=== PATIENT | female | born 1945 | race Caucasian/White ===

== ENCOUNTER 2018-03-23 11:00 | Inpatient (IN) | payer MEDICARE ==
[2018-04-21] MEDS ORDERED: Acetaminophen 500 MG Tab PO ONE (08:15)
[2018-04-21] MEDS ORDERED: Dextrose 5%-Lactated Ringers 1,000 ML IV SCH (08:45)
[2018-04-21] MEDS ORDERED: Glycopyrrolate 0.2 MG/ML 5 ML MDV ONE (08:59)
[2018-04-21] MEDS ORDERED: Succinylcholine 200 MG/10 ML MDV ONE (08:59)
[2018-04-21] MEDS ORDERED: fentaNYL 250 MCG/5 ML SDV ONE (08:59)
[2018-04-21] MEDS ORDERED: Propofol 200 MG/20 ML SDV ONE (08:59)
[2018-04-21] MEDS ORDERED: Ondansetron 4 MG/2 ML SDV ONE (08:59)
[2018-04-21] MEDS ORDERED: Dexamethasone 4 MG/ML SDV ONE (08:59)
[2018-04-21] MEDS ORDERED: Rocuronium 50 MG/5 ML Vial ONE (08:59)
[2018-04-21] MEDS ORDERED: Neostigmine Methylsulfate 1 MG/ML 5 ML Syringe ONE (08:59)
[2018-04-21] MEDS ORDERED: ceFAZolin 2 GM in Sodium Chloride 0.9% 50 ML IV ONE (09:30)
[2018-04-21] MEDS ORDERED: Naloxone 0.4 MG/ML SDV IVPUSH PRN (09:46)
[2018-04-21] MEDS ORDERED: HYDROmorphone/Normal Saline 15 MG/30 ML PCA IV PRN (09:46)
[2018-04-21] MEDS ORDERED: Naloxone 0.4 MG/ML SDV IV PRN (09:50)
[2018-04-21] MEDS ORDERED: Ketamine 500 MG/5 ML MDV IV SCH (10:00)
[2018-04-21] MEDS ORDERED: Lactated Ringers 1,000 ML ONE (13:23)
[2018-04-21] MEDS ORDERED: Ondansetron 4 MG/2 ML SDV IVPUSH PRN (15:19)
[2018-04-21] MEDS: ceFAZolin 1 GM in Premix Bag 1 BAG IV SCH (17:47)
[2018-04-21] MEDS: Pantoprazole 40 MG Vial IV SCH (17:48)
[2018-04-21] MEDS: Metoprolol Tartrate 25 MG Tab PO SCH (20:55)
[2018-04-22] MEDS: ceFAZolin 1 GM in Premix Bag 1 BAG IV SCH ×2 (02:17→09:48)
[2018-04-22] MEDS ORDERED: Sodium Chloride 0.9% 10 ML Syringe IV PRN (08:11)
[2018-04-22] MEDS ORDERED: Acetaminophen 325 MG Tab PO PRN (08:15)
[2018-04-22] MEDS ORDERED: Lisinopril 20 MG Tab PO SCH (09:00)
[2018-04-22] MEDS: Hydrochlorothiazide 25 MG Tab PO SCH (09:49)
[2018-04-22] MEDS: Metoprolol Tartrate 25 MG Tab PO SCH ×2 (09:49→21:49)
[2018-04-22] MEDS: Magnesium Sulfate/Water 2 GM in Premix Bag 1 BAG IV SCH ×3 (11:36→21:49)
[2018-04-22] MEDS: Pantoprazole 40 MG Vial IV SCH (15:34)
[2018-04-23] MEDS: Magnesium Sulfate/Water 2 GM in Premix Bag 1 BAG IV SCH (04:24)
[2018-04-23] MEDS ORDERED: Magnesium Sulfate/Water 2 GM in Premix Bag 1 BAG IV ONE (08:00)
[2018-04-23] MEDS: Metoprolol Tartrate 25 MG Tab PO SCH (08:06)
[2018-04-23] MEDS: Hydrochlorothiazide 25 MG Tab PO SCH (08:06)
--- NOTE | 2018-04-23 15:01 | PN ---
DATE OF SERVICE: 04/22/2018 The patient has been afebrile with stable vital signs. No major problems. Overnight, she needed negligible amounts of pain medicine. Incision looks clean. Calcium this morning is down somewhat at 8.1, but is not symptomatic. Phosphate is 4.8. Magnesium is quite low at 1.2, we will be supplementing that. Otherwise, we will go up to a regular diet today, saline lock the IV, Tylenol as needed for pain, and begin supplementing the magnesium IV. She may be ready for discharge home tomorrow. John Paul Mendoza MD /[id number]
--- NOTE | 2018-04-23 15:02 | OR ---
DATE OF PROCEDURE: 04/21/2018 PREOPERATIVE DIAGNOSIS: Diffuse toxic goiter. POSTOPERATIVE DIAGNOSIS: Diffuse toxic goiter with substernal component of left thyroid lobe. OPERATIVE PROCEDURE: Thyroid exploration with right total thyroid lobectomy and left subtotal lobectomy including excision of substernal thyroid (20812). ANESTHESIA: General. MANAGEMENT PROFESSIONAL: Chen Mijares PA-C. INDICATION FOR PROCEDURE: This is a 73-year-old presenting with a picture of diffuse toxic goiter. After preoperative evaluation and discussion and various treatment options had been reviewed, the patient wished to proceed with a thyroidectomy. I will remove as much thyroid tissue as appears to be maximally safe which likely would include a total thyroid lobectomy and has at least a subtotal contralateral lobectomy. Potential risks of the procedure including bleeding, infection, injury to the parathyroid glands and/or recurrent laryngeal nerves with consequences of those injuries having been outlined were reviewed. The need for lifetime thyroid replacement was gone over and the remote possibility that an occult malignancy might be identified that might require additional treatment were all gone over along with the remote possibility of cardiopulmonary, septic, or hemorrhagic complications leading to , and the patient wishes to proceed. DETAILS OF PROCEDURE: The patient was taken to the operating room and placed in a supine position. After general endotracheal anesthetic was induced, a roll was placed underneath the shoulders, and the upper chest and neck areas were prepped and draped. Two fingerbreadths superior to the sternal notch, there was a well-defined skin crease, and a transversely-oriented incision was made in that crease, carried down through the skin and subcutaneous tissue and through the platysmal layers. Subplatysmal flaps were then raised superiorly and inferiorly, and the midline fascia of the strap muscles divided. Attention was initially taken to the left thyroid lobe. As the strap muscles were retracted off this, the patient was noted to have a significant substernal component of the left thyroid lobe, this contained some cystic-type thyroid tissue within it. This was mobilized upward bluntly and this allowed division of the inferior thyroid veins with the Sonicision device. The upper pole was then taken next with Sonicision, and this allowed medial mobilization of the left thyroid lobe, and the middle thyroid vein was then divided, and then the branches of the inferior thyroid artery were divided flush with the thyroid reflecting the group of tissues consisting of the more proximal inferior thyroid artery and its branches along with parathyroid tissue away from the surface of the thyroid capsule. The isthmus was then divided just to the right of the midline, and dissection continued downward, removing the attachments of the trachea in the area where the ligament of Bashir was present. That area appeared to be somewhat inflamed, and we left a small patch of thyroid tissue, perhaps half a size of the standard eraser head directly in that area, so as not to immediately dissect the inferior thyroid artery and underlying recurrent laryngeal nerve. This specimen was then delivered from the field. Attention was then taken to the right side. This side had little in the way of inflammation and a similar dissection was undertaken. Apart from that, there was no substernal component on this side, and on this side, a total lobectomy was accomplished as there was minimal if any inflammation in the area of ligament of Bashir. Parathyroid glands on this side were also confirmed and appeared to have good blood supply at the conclusion of the procedure. The area was irrigated with saline solution. No bleeding or other problems were noted at this point. The strap muscles were then approximated in midline with 3-0 Vicryl stitch, the platysmal layer with 4-0 Vicryl stitch, and the skin with 5-0 Vicryl subcuticular stitch. Dressing was applied. The patient was taken to the recovery room in satisfactory condition. Physician benefits assistant, Chen Mijares, played an essential role in assisting in this case, helping to position the patient, retract structures as needed, as well as suturing and cutting sutures when indicated. Her presence improved patient safety and decreased the operative time. John Paul Mendoza MD /[id number]
--- NOTE | 2018-04-23 15:46 | DISCH ---
FINAL DIAGNOSES: 1. Hyperthyroidism associated with diffuse toxic goiter. 2. Atypical chest pain with cardiac clearance. 3. Hypertension. 4. History of hyperlipidemia. 5. Remote history of myocardial infarction. 6. Environmental allergies. OPERATIVE PROCEDURE: This was done on 04/21 with thyroid exploration with total right thyroid lobectomy and subtotal left thyroid lobectomy with excision of substernal goiter. SUMMARY: This is a 73-year-old presenting with hyperthyroidism. Radiologic workup did not show any focal abnormalities, so the patient underwent the above-stated procedures. Postoperatively, her voice was good. Her calcium has been running around 7.9 to 8.1 and I think we can let discharge her home at this point. She will be instructed to take Tums 2 tablets p.o. b.i.d. Her magnesium also was quite low at 1.3 and she received several doses of IV magnesium and we will give her magnesium oxide 400 mg p.o. daily x90 days, #90. We will hold the Synthroid for the next few days and then begin empirically 88 mcg of Synthroid daily and recheck her TSH level in around 3 months. Otherwise, her blood pressure had been on the lower side, so we will hold the lisinopril at this point. Continue the hydrochlorothiazide and metoprolol and recheck her blood pressure at her next appointment, which will be this coming 04/26/2018. She should have a BMP, magnesium, and phosphate levels drawn at that time. Otherwise, she will be on regular diet and Tylenol as needed for pain.
== END 2018-04-23 10:30 | disposition home or self-care (01) | DRG 627 ==
LOC: JP.SDS 04-21 07:46 → JP.SDSSCHI 04-21 07:46 → EDSTATUS 04-21 10:45 → JP.MS 04-21 13:40
PROVIDERS: ADMIT Surgery; ATTEND Surgery
PROC: 0GTH0ZZ Resection of Right Thyroid Gland Lobe, Open Approach (ICD-10-PCS; principal; 2018-04-21)
PROC: 0GBG0ZX Excision of Left Thyroid Gland Lobe, Open Approach, Diagnostic (ICD-10-PCS; 2018-04-21)
PROC: 0GBJ0ZX Excision of Thyroid Gland Isthmus, Open Approach, Diagnostic (ICD-10-PCS; 2018-04-21)
DX: E05.00 Thyrotoxicosis with diffuse goiter without thyrotoxic crisis or storm (principal); R60.0 Localized edema; E83.42 Hypomagnesemia; I10 Essential (primary) hypertension; I25.2 Old myocardial infarction; R07.89 Other chest pain; E78.5 Hyperlipidemia, unspecified
CPT/HCPCS: 36415; 80048; 83735; 84100; 94762; A9270-GY; C9113; J0330; J0690; J1100; J1170; J2405; J2704; J2710; J3010; J3475; J3490; J7042; J7050; J7120

== ENCOUNTER 2021-04-05 06:28 | Inpatient (IN) | payer MEDICARE ==
[2021-04-05] MEDS ORDERED: Albuterol/Ipratropium 3.0-0.5 MG/3 ML Neb Soln NEB ONE (07:19)
--- NOTE | 2021-04-05 07:22 | EDM.PDOC ---
ED HPI GENERAL MEDICAL PROBLEM - General Chief Complaint: Respiratory Problem Stated Complaint: SOB Time Seen by Provider: 04/05/21 07:14 Source of Information: Reports: Patient, Family, RN Notes Reviewed History Limitations: Reports: No Limitations - History of Present Illness INITIAL COMMENTS - FREE TEXT/NARRATIVE: 76-year-old female presents emergency department with a complaint of shortness of breath, she states she started getting sick about 3 days prior has progressively gotten worse had difficulty breathing this morning presented to the emergency department for further evaluation. She states he may had a fever at home but it might have been broke she has been vaccinated for Covid x2 - Related Data Allergies Allergy/AdvReac Type Severity Reaction Status Date / Time No Known Allergies Allergy Verified 04/05/21 06:48 Home Meds: Home Meds Cholecalciferol (Vitamin D3) [Vitamin D3] 5,000 unit PO DAILY 03/23/18 [History] Lisinopril 40 mg PO DAILY 03/23/18 [History] Metoprolol Tartrate 50 mg PO DAILY 03/23/18 [History] atorvaSTATin [Lipitor] 10 mg PO BEDTIME 03/23/18 [History] hydroCHLOROthiazide [Hydrochlorothiazide] 50 mg PO DAILY 03/23/18 [History] Levothyroxine [Synthroid] 88 mcg PO ACBREAKFAST #90 tab 04/23/18 [Rx] Magnesium Oxide [Magnesium] 400 mg PO DAILY #90 tablet 04/23/18 [Rx] Past Medical History HEENT History: Reports: Impaired Vision Other HEENT History: wears glasses Cardiovascular History: Reports: Angina, CAD, High Cholesterol, Hypertension, PR Other Cardiovascular History: [facility] History: Reports: Endocrine/Metabolic History: Reports: Hyperparathyroidism - Infectious Disease History Infectious Disease History: Reports: Chicken Pox, Shingles Social & Family History - Family History Neurological: Reports: TIA - Caffeine Use Caffeine Use: Reports: Coffee - Recreational Drug Use Recreational Drug Use: No ED ROS GENERAL - Review of Systems Review Of Systems: See Below Constitutional: Reports: No Symptoms HEENT: Reports: No Symptoms Respiratory: Reports: Shortness of Breath. Denies: Cough, Sputum Cardiovascular: Reports: Dyspnea on Exertion. Denies: Chest Pain GI/Abdominal: Reports: No Symptoms : Reports: No Symptoms ED EXAM, GENERAL - Physical Exam Exam: See Below Exam Limited By: No Limitations General Appearance: Alert, WD/WN, No Apparent Distress Respiratory/Chest: No Respiratory Distress, Lungs Clear, Normal Breath Sounds, No Accessory Muscle Use, Chest Non-Tender Cardiovascular: Tachycardia GI/Abdominal: Soft, Non-Tender Extremities: No Pedal Edema #1 Interpretation EKG Date: 04/05/21 Time: 08:25 Rhythm: Other (tachycardia) [place]: Normal P-Wave: Present QRS: Normal ST-T: Normal QT: Normal Comparison: NA - No Prior EKG Course - Vital Signs Last Recorded V/S: Last Vital Signs Temp 98.1 F 04/05/21 11:14 Pulse 88 04/05/21 11:14 Resp 18 04/05/21 11:14 BP 121/63 04/05/21 11:14 Pulse Ox 98 04/05/21 11:14 - Orders/Labs/Meds Orders: Active Orders 24 hr Category Date Time Status Cardiac Monitoring [RC] .As Directed Care 04/05/21 06:55 Active EKG Documentation Completion [RC] ASDIRECTED Care 04/05/21 07:20 Active RT Aerosol Therapy [RC] ASDIRECTED Care 04/05/21 07:20 Active Vital Signs [RC] Q1H Care 04/05/21 07:18 Active Chest 1V Frontal [CR] Urgent Exams 04/05/21 07:19 Taken CULTURE BLOOD [BC] Urgent Lab 04/05/21 07:50 Received CULTURE BLOOD [BC] Urgent Lab 04/05/21 08:05 Received UA W/MICROSCOPIC [URIN] Urgent Lab 04/05/21 11:48 Results Norepinephrine [Levophed] 4 mg Med 04/05/21 10:00 Active Dextrose 5% in Water 246 ml IV TITRATE Piperacillin/Tazobactam [Zosyn] 4.5 gm Med 04/05/21 07:30 Active Sodium Chloride 0.9% [Normal Saline] 100 ml IV Q6H Blood Culture x2 Reflex Set [OM.PC] Urgent Oth 04/05/21 07:18 Ordered EKG 12 Lead [EK] Stat Ther 04/05/21 07:19 Ordered Medication Orders Piperacillin Sod/Tazobactam (Sod 4.5 gm/ Sodium Chloride) 100 mls @ 200 mls/hr IV Q6H CHASITY Last Admin: 04/05/21 08:10 Dose: 200 mls/hr Documented by: LADI Norepinephrine Bitartrate 4 mg (/ Dextrose/Water) 250 mls @ 7.5 mls/hr IV TITRATE CHASITY; Protocol Last Admin: 04/05/21 10:00 Dose: 2 mcg/min, 7.5 mls/hr Documented by: LADI Labs: Laboratory Tests 04/05/21 04/05/21 04/05/21 Range/Units 07:33 07:50 07:50 WBC 7.5 (4.5-11.0) K/uL RBC 4.78 (3.30-5.50) M/uL Hgb 14.3 (12.0-15.0) g/dL Hct 42.1 (36.0-48.0) % MCV 88 (80-98) fL MCH 30 (27-31) pg MCHC 34 (32-36) % Plt Count 123 L (150-400) K/uL Add Manual Diff Yes Neutrophils % (Manual) 81 H (36-66) % Band Neutrophils % 10 (5-11) % Lymphocytes % (Manual) 3 L (24-44) % Monocytes % (Manual) 6 (2-6) % D-Dimer, Quantitative (0.0-500.0) ng/mL Sodium 135 L (140-148) mmol/L Potassium 3.1 L (3.6-5.2) mmol/L Chloride 97 L (100-108) mmol/L Carbon Dioxide 27 (21-32) mmol/L Anion Gap 14.1 H (5.0-14.0) mmol/L BUN 39 H (7-18) mg/dL Creatinine 1.4 H (0.6-1.0) mg/dL Est Cr Clr Drug Dosing 26.19 mL/min Estimated GFR (MDRD) 36 L (>60) Glucose 117 H (74-106) mg/dL Lactic Acid (0.4-2.0) mmol/L Calcium 8.7 (8.5-10.1) mg/dL Total Bilirubin 0.5 (0.2-1.0) mg/dL AST 85 H (15-37) U/L ALT 48 (12-78) U/L Alkaline Phosphatase 82 (46-116) U/L Troponin I (0.000-0.056) ng/mL C-Reactive Protein 7.62 H (0.0-0.3) mg/dL Total Protein 6.3 L (6.4-8.2) g/dL Albumin 3.1 L (3.4-5.0) g/dL Globulin 3.2 (2.3-3.5) g/dL Albumin/Globulin Ratio 1.0 L (1.2-2.2) Procalcitonin ng/mL Urine Color (YELLOW) Urine Appearance (CLEAR) Urine pH (5.0-8.0) Ur Specific [place] (1.008-1.030) Urine Protein (NEGATIVE) mg/dL Urine Glucose (UA) (NEGATIVE) mg/dL Urine Ketones (NEGATIVE) mg/dL Urine Occult Blood (NEGATIVE) Urine Nitrite (NEGATIVE) Urine Bilirubin (NEGATIVE) Urine Urobilinogen (0.2-1.0) EU/dL Ur Leukocyte Esterase (NEGATIVE) Influenza Type A RNA Negative (NEGATIVE) RSV RNA (INAAT) Negative (NEGATIVE) Influenza Type B RNA Negative (NEGATIVE) SARS-CoV-2 RNA (EBONY) Negative (NEGATIVE) 04/05/21 04/05/21 04/05/21 Range/Units 07:50 07:50 07:50 WBC (4.5-11.0) K/uL RBC (3.30-5.50) M/uL Hgb (12.0-15.0) g/dL Hct (36.0-48.0) % MCV (80-98) fL MCH (27-31) pg MCHC (32-36) % Plt Count (150-400) K/uL Add Manual Diff Neutrophils % (Manual) (36-66) % Band Neutrophils % (5-11) % Lymphocytes % (Manual) (24-44) % Monocytes % (Manual) (2-6) % D-Dimer, Quantitative (0.0-500.0) ng/mL Sodium (140-148) mmol/L Potassium (3.6-5.2) mmol/L Chloride (100-108) mmol/L Carbon Dioxide (21-32) mmol/L Anion Gap (5.0-14.0) mmol/L BUN (7-18) mg/dL Creatinine (0.6-1.0) mg/dL Est Cr Clr Drug Dosing mL/min Estimated GFR (MDRD) (>60) Glucose (74-106) mg/dL Lactic Acid 1.3 (0.4-2.0) mmol/L Calcium (8.5-10.1) mg/dL Total Bilirubin (0.2-1.0) mg/dL AST (15-37) U/L ALT (12-78) U/L Alkaline Phosphatase (46-116) U/L Troponin I < 0.017 (0.000-0.056) ng/mL C-Reactive Protein (0.0-0.3) mg/dL Total Protein (6.4-8.2) g/dL Albumin (3.4-5.0) g/dL Globulin (2.3-3.5) g/dL Albumin/Globulin Ratio (1.2-2.2) Procalcitonin 2.67 H* ng/mL Urine Color (YELLOW) Urine Appearance (CLEAR) Urine pH (5.0-8.0) Ur Specific [place] (1.008-1.030) Urine Protein (NEGATIVE) mg/dL Urine Glucose (UA) (NEGATIVE) mg/dL Urine Ketones (NEGATIVE) mg/dL Urine Occult Blood (NEGATIVE) Urine Nitrite (NEGATIVE) Urine Bilirubin (NEGATIVE) Urine Urobilinogen (0.2-1.0) EU/dL Ur Leukocyte Esterase (NEGATIVE) Influenza Type A RNA (NEGATIVE) RSV RNA (INAAT) (NEGATIVE) Influenza Type B RNA (NEGATIVE) SARS-CoV-2 RNA (EBONY) (NEGATIVE) 04/05/21 04/05/21 Range/Units 09:42 11:48 WBC (4.5-11.0) K/uL RBC (3.30-5.50) M/uL Hgb (12.0-15.0) g/dL Hct (36.0-48.0) % MCV (80-98) fL MCH (27-31) pg MCHC (32-36) % Plt Count (150-400) K/uL Add Manual Diff Neutrophils % (Manual) (36-66) % Band Neutrophils % (5-11) % Lymphocytes % (Manual) (24-44) % Monocytes % (Manual) (2-6) % D-Dimer, Quantitative 8028.04 H (0.0-500.0) ng/mL Sodium (140-148) mmol/L Potassium (3.6-5.2) mmol/L Chloride (100-108) mmol/L Carbon Dioxide (21-32) mmol/L Anion Gap (5.0-14.0) mmol/L BUN (7-18) mg/dL Creatinine (0.6-1.0) mg/dL Est Cr Clr Drug Dosing mL/min Estimated GFR (MDRD) (>60) Glucose (74-106) mg/dL Lactic Acid (0.4-2.0) mmol/L Calcium (8.5-10.1) mg/dL Total Bilirubin (0.2-1.0) mg/dL AST (15-37) U/L ALT (12-78) U/L Alkaline Phosphatase (46-116) U/L Troponin I (0.000-0.056) ng/mL C-Reactive Protein (0.0-0.3) mg/dL Total Protein (6.4-8.2) g/dL Albumin (3.4-5.0) g/dL Globulin (2.3-3.5) g/dL Albumin/Globulin Ratio (1.2-2.2) Procalcitonin ng/mL Urine Color Yellow (YELLOW) Urine Appearance Clear (CLEAR) Urine pH 6.0 (5.0-8.0) Ur Specific [place] 1.010 (1.008-1.030) Urine Protein 30 H (NEGATIVE) mg/dL Urine Glucose (UA) Negative (NEGATIVE) mg/dL Urine Ketones Negative (NEGATIVE) mg/dL Urine Occult Blood Small H (NEGATIVE) Urine Nitrite Negative (NEGATIVE) Urine Bilirubin Negative (NEGATIVE) Urine Urobilinogen 0.2 (0.2-1.0) EU/dL Ur Leukocyte Esterase Negative (NEGATIVE) Influenza Type A RNA (NEGATIVE) RSV RNA (INAAT) (NEGATIVE) Influenza Type B RNA (NEGATIVE) SARS-CoV-2 RNA (EBONY) (NEGATIVE) Meds: Medications Generic Name Dose Route Start Last Admin Trade Name Freq PRN Reason Stop Dose Admin Piperacillin Sod/Tazobactam 100 mls @ 200 mls/hr 04/05/21 07:30 04/05/21 08:10 Sod 4.5 gm/ Sodium Chloride IV 200 mls/hr Q6H CHASITY Administration Norepinephrine Bitartrate 4 mg 250 mls @ 7.5 mls/hr 04/05/21 10:00 04/05/21 10:00 / Dextrose/Water IV 2 mcg/min TITRATE CHASITY 7.5 mls/hr Administration Protocol 2 MCG/MIN Discontinued Medications Generic Name Dose Route Start Last Admin Trade Name Jaguar VELASQUEZN Reason Stop Dose Admin Acetaminophen 650 mg 04/05/21 07:29 04/05/21 08:10 Acetaminophen 325 Mg Tab PO 04/05/21 07:30 650 mg NOW ONE Administration Albuterol/Ipratropium 3 ml 04/05/21 07:19 04/05/21 08:25 Albuterol/Ipratropium 3.0-0.5 Mg/3 Ml Neb Soln NEB 04/05/21 07:20 3 ml ONETIME ONE Administration Lactated Ringer's 1,000 mls @ 999 mls/hr 04/05/21 07:30 04/05/21 08:10 Ringers, Lactated IV 999 mls/hr ASDIRECTED CHASITY Administration Lactated Ringer's 1,000 mls @ 999 mls/hr 04/05/21 09:25 04/05/21 09:30 Ringers, Lactated IV 04/05/21 10:25 999 mls/hr BOLUS ONE Administration Sodium Chloride 100 mls @ 4 mls/sec 04/05/21 10:33 04/05/21 11:24 Normal Saline IV 04/05/21 10:34 4 mls/sec ASDIRECTED STA Administration Iopamidol 100 ml 04/05/21 10:33 04/05/21 11:24 Iopamidol 755 Mg/Ml 100 Ml Bottle IV 04/05/21 10:34 100 ml . DIRECTED STA Administration Departure - Departure Time of Disposition: 11:57 Disposition: Admitted As Inpatient 64 Condition: Fair Clinical Impression: Sepsis associated hypotension - Discharge Information Referrals: Sean Lugo Sr, MD [Primary Care Provider] - Forms: ED Department Discharge Critical Care Note - Critical Care Note Total Time (mins): 30 Sepsis Event Note (ED) - Evaluation Sepsis Screening Result: Possible Sepsis Risk - Focused Exam Vital Signs: Vital Signs Temp Pulse Resp BP Pulse Ox 04/05/21 11:14 98.1 F 88 18 121/63 98 04/05/21 11:10 88 26 H 121/63 98 04/05/21 10:43 96 93/51 L 04/05/21 10:00 99.8 F 92 26 H 82/43 L 94 L 04/05/21 09:59 97 29 H 82/43 L 93 L 04/05/21 09:54 98 78/41 L 95 04/05/21 09:47 98 30 H 71/35 L 95 04/05/21 09:23 102 H 25 H 77/39 L 94 L 04/05/21 09:11 82/36 L 04/05/21 09:03 100.4 F 110 H 22 H 74/36 L 94 L 04/05/21 07:30 102.8 F H 04/05/21 06:45 97.1 F 132 H 30 H 107/62 91 L - My Orders Last 24 Hours: My Active Orders 04/05/21 07:18 Vital Signs [RC] Q1H Blood Culture x2 Reflex Set [OM.PC] Urgent 04/05/21 07:19 Chest 1V Frontal [CR] Urgent EKG 12 Lead [EK] Stat 04/05/21 07:20 EKG Documentation Completion [RC] ASDIRECTED RT Aerosol Therapy [RC] ASDIRECTED 04/05/21 07:30 Piperacillin/Tazobactam [Zosyn] 4.5 gm Sodium Chloride 0.9% [Normal Saline] 100 ml IV Q6H 04/05/21 07:50 CULTURE BLOOD [BC] Urgent 04/05/21 08:05 CULTURE BLOOD [BC] Urgent 04/05/21 10:00 Norepinephrine [Levophed] 4 mg Dextrose 5% in Water 246 ml IV TITRATE 04/05/21 11:48 UA W/MICROSCOPIC [URIN] Urgent - Assessment/Plan Last 24 Hours: My Active Orders 04/05/21 07:18 Vital Signs [RC] Q1H Blood Culture x2 Reflex Set [OM.PC] Urgent 04/05/21 07:19 Chest 1V Frontal [CR] Urgent EKG 12 Lead [EK] Stat 04/05/21 07:20 EKG Documentation Completion [RC] ASDIRECTED RT Aerosol Therapy [RC] ASDIRECTED 04/05/21 07:30 Piperacillin/Tazobactam [Zosyn] 4.5 gm Sodium Chloride 0.9% [Normal Saline] 100 ml IV Q6H 04/05/21 07:50 CULTURE BLOOD [BC] Urgent 04/05/21 08:05 CULTURE BLOOD [BC] Urgent 04/05/21 10:00 Norepinephrine [Levophed] 4 mg Dextrose 5% in Water 246 ml IV TITRATE 04/05/21 11:48 UA W/MICROSCOPIC [URIN] Urgent Plan: Assessment Acuity = acute Site and laterality = sepsis with hypotension Etiology = unknown Manifestations = none Location of injury = Home Lab values = CBC unremarkable D-dimer elevated 8028 unclear significance potassium low at 3.1 consistent hypokalemia creatinine elevated 1.4 consistent with acute renal failure stage G3 B lactic acid normal 1.3 AST elevated 85 consistent with elevated liver enzymes troponin was negative CRP elevated 7.60 procalcitonin markedly elevated 2.67 urinalysis unremarkable chest x-ray shows no acute process official read radiologist pending CT scan of the chest reveals no pulmonary embolism, Covid was negative influenza negative Plan Call discussed case Dr. Lugo primary care at 10:00 kindly agreed to come and evaluate patient for admission, Levophed has been initiated in the emergency department as well Zosyn. Cultures are pending This note was dictated using [employer] voice recognition software please call with any questions on syntax or grammar.
[2021-04-05] MEDS ORDERED: Acetaminophen 325 MG Tab PO ONE (07:29)
[2021-04-05] MEDS ORDERED: Lactated Ringers 1,000 ML IV SCH (07:30)
[2021-04-05] MEDS ORDERED: Piperacillin/Tazobactam 4.5 GM in Sodium Chloride 0.9% 100 ML IV SCH ×2 (07:30→12:30)
[2021-04-05 08:18] LABS: CORONAVIRUS COVID-19 NAA NEGATIVE (NEGATIVE)
[2021-04-05] MEDS ORDERED: Lactated Ringers 1,000 ML IV ONE (09:25)
[2021-04-05] MEDS: Norepinephrine 4 MG in Dextrose 5% in Water 246 ML IV SCH ×2 (10:00)
[2021-04-05] MEDS ORDERED: Sodium Chloride 0.9% 100 ML IV STA (10:33)
[2021-04-05] MEDS ORDERED: Iopamidol 755 Mg/ML 100 ML Bottle IV STA (10:33)
--- NOTE | 2021-04-05 11:50 | CRLCT ---
For Patients: As a result of the Century Cures Act, medical imaging exams and procedure reports are released immediately into your electronic medical record. You may view this report before your referring provider. If you have questions, please contact your health care provider. INDICATION: Hypoxic. TECHNIQUE: CT chest pulmonary angiogram acquired with IV contrast. COMPARISON: None FINDINGS: The aorta is normal in caliber. There is atherosclerotic calcification. Heart is not enlarged. There are coronary artery calcifications. The main pulmonary artery is normal in caliber. No pulmonary embolus. Enlarged right hilar lymph node measures 1.8 x 1.6 cm (image 59). Additional prominent right hilar lymph nodes. There prominent left hilar lymph nodes. An azygos esophageal recess lymph node measures 1.7 x 1.4 cm (image 60). There are additional prominent mediastinal lymph nodes. A calcified mediastinal lymph nodes noted as well. No axillary lymphadenopathy. No effusions. No pneumothorax. Emphysema noted. Bilateral posterior lower lobe opacities most consistent with atelectasis. No suspicious lung lesion. Small hiatal hernia. No suspicious bone lesion. No acute osseous abnormality. IMPRESSION: 1. No pulmonary embolus. 2. Bilateral posterior lower lobe opacities favor atelectasis. 3. Emphysema. 4. Mediastinal and right hilar lymphadenopathy. Etiology is uncertain. A neoplastic process is not excluded. Recommend further evaluation versus follow-up. Dictated by Julio Garzon MD @ 04/05/2021 11:48:05 AM Please note that all CT scans at this facility use dose modulation, iterative reconstruction, and/or weight-based dosing when appropriate to reduce radiation dose to as low as reasonably achievable. Dictated by: Julio Garzon MD @ 04/05/2021 11:48:14 (Electronically Signed)
--- NOTE | 2021-04-05 11:56 | PCM.HP.2 ---
H&P History of Present Illness - General Date of Service: 04/05/21 Source of Information: Patient - History of Present Illness Initial Comments - Free Text/Narative: Feeling weak for one week then 4 days started to cough and had shortness of breath. Started to have fever and chills 2 days ago and shortness of breath became apparent yesterday. Onset of Symptoms: Reports: Gradual Associated Symptoms: Reports: Cough, Fever/Chills, Loss of Appetite, Shortness of Breath, Weakness - Related Data Allergies/Adverse Reactions: Allergies Allergy/AdvReac Type Severity Reaction Status Date / Time No Known Allergies Allergy Verified 04/05/21 06:48 Home Medications: Home Meds Cholecalciferol (Vitamin D3) [Vitamin D3] 5,000 unit PO DAILY 03/23/18 [History] Lisinopril 40 mg PO DAILY 03/23/18 [History] Metoprolol Tartrate 50 mg PO DAILY 03/23/18 [History] atorvaSTATin [Lipitor] 10 mg PO BEDTIME 03/23/18 [History] hydroCHLOROthiazide [Hydrochlorothiazide] 50 mg PO DAILY 03/23/18 [History] Levothyroxine [Synthroid] 88 mcg PO ACBREAKFAST #90 tab 04/23/18 [Rx] Magnesium Oxide [Magnesium] 400 mg PO DAILY #90 tablet 04/23/18 [Rx] Past Medical History HEENT History: Reports: Impaired Vision Other HEENT History: wears glasses Cardiovascular History: Reports: Angina, CAD, High Cholesterol, Hypertension, [place] Other Cardiovascular History: edma [employer] History: Reports: Endocrine/Metabolic History: Reports: Hyperparathyroidism - Infectious Disease History Infectious Disease History: Reports: Chicken Pox, Shingles Social & Family History - Family History Neurological: Reports: TIA - Caffeine Use Caffeine Use: Reports: Coffee - Recreational Drug Use Recreational Drug Use: No H&P Review of Systems - Review of Systems: Review Of Systems: See Below General: Reports: Fever, Chills, Malaise, Weakness, Decreased Appetite HEENT: Reports: No Symptoms Pulmonary: Reports: Shortness of Breath, Wheezing, Cough, Sputum Cardiovascular: Reports: Dyspnea on Exertion Gastrointestinal: Reports: No Symptoms Genitourinary: Reports: No Symptoms Musculoskeletal: Reports: No Symptoms Skin: Reports: No Symptoms Psychiatric: Reports: No Symptoms Neurological: Reports: No Symptoms Hematologic/Lymphatic: Reports: No Symptoms Immunologic: Reports: No Symptoms Exam - Exam Exam: See Below - Vital Signs Vital Signs: Last Vital Signs Temp 98.1 F 04/05/21 11:14 Pulse 88 04/05/21 11:14 Resp 18 04/05/21 11:14 BP 121/63 04/05/21 11:14 Pulse Ox 98 04/05/21 11:14 Weight: 160 lb - Exam General: Alert, Oriented, 4 HEENT: PERRLA, Hearing Intact, Mucosa Moist & [place], Nares Patent, Normal Nasal Septum, Posterior Pharynx Clear, Conjunctiva Clear, EOMI, EACs Clear, TMs Clear Neck: Supple, Trachea Midline, 2 Lungs: Clear to Auscultation, Normal Respiratory Effort Cardiovascular: Regular Rate, Regular Rhythm GI/Abdominal Exam: Normal Bowel Sounds, Soft, Non-Tender, No Organomegaly, No Distention, No Abnormal Bruit, No Mass, Pelvis Stable Back Exam: Normal Inspection, Full Range of Motion, NT Extremities: Normal Inspection, Normal Range of Motion, Non-Tender, No Pedal Edema, Normal Capillary Refill Peripheral Pulses: 1+: Radial (L), Radial (R) Skin: Warm, Dry, Intact DTR: 1+: Bicep (L), Bicep (R) Psychiatric: Alert, Normal Affect, Normal Mood - Patient Data Lab Results Last 24 hrs: Laboratory Results - last 24 hr 04/05/21 04/05/21 04/05/21 Range/Units 07:33 07:50 07:50 WBC 7.5 (4.5-11.0) K/uL RBC 4.78 (3.30-5.50) M/uL Hgb 14.3 (12.0-15.0) g/dL Hct 42.1 (36.0-48.0) % MCV 88 (80-98) fL MCH 30 (27-31) pg MCHC 34 (32-36) % Plt Count 123 L (150-400) K/uL Add Manual Diff Yes Neutrophils % (Manual) 81 H (36-66) % Band Neutrophils % 10 (5-11) % Lymphocytes % (Manual) 3 L (24-44) % Monocytes % (Manual) 6 (2-6) % D-Dimer, Quantitative (0.0-500.0) ng/mL Sodium 135 L (140-148) mmol/L Potassium 3.1 L (3.6-5.2) mmol/L Chloride 97 L (100-108) mmol/L Carbon Dioxide 27 (21-32) mmol/L Anion Gap 14.1 H (5.0-14.0) mmol/L BUN 39 H (7-18) mg/dL Creatinine 1.4 H (0.6-1.0) mg/dL Est Cr Clr Drug Dosing 26.19 mL/min Estimated GFR (MDRD) 36 L (>60) Glucose 117 H (74-106) mg/dL Lactic Acid (0.4-2.0) mmol/L Calcium 8.7 (8.5-10.1) mg/dL Total Bilirubin 0.5 (0.2-1.0) mg/dL AST 85 H (15-37) U/L ALT 48 (12-78) U/L Alkaline Phosphatase 82 (46-116) U/L Troponin I (0.000-0.056) ng/mL C-Reactive Protein 7.62 H (0.0-0.3) mg/dL Total Protein 6.3 L (6.4-8.2) g/dL Albumin 3.1 L (3.4-5.0) g/dL Globulin 3.2 (2.3-3.5) g/dL Albumin/Globulin Ratio 1.0 L (1.2-2.2) Procalcitonin ng/mL Influenza Type A RNA Negative (NEGATIVE) RSV RNA (INAAT) Negative (NEGATIVE) Influenza Type B RNA Negative (NEGATIVE) SARS-CoV-2 RNA (EBONY) Negative (NEGATIVE) 04/05/21 04/05/21 04/05/21 Range/Units 07:50 07:50 07:50 WBC (4.5-11.0) K/uL RBC (3.30-5.50) M/uL Hgb (12.0-15.0) g/dL Hct (36.0-48.0) % MCV (80-98) fL MCH (27-31) pg MCHC (32-36) % Plt Count (150-400) K/uL Add Manual Diff Neutrophils % (Manual) (36-66) % Band Neutrophils % (5-11) % Lymphocytes % (Manual) (24-44) % Monocytes % (Manual) (2-6) % D-Dimer, Quantitative (0.0-500.0) ng/mL Sodium (140-148) mmol/L Potassium (3.6-5.2) mmol/L Chloride (100-108) mmol/L Carbon Dioxide (21-32) mmol/L Anion Gap (5.0-14.0) mmol/L BUN (7-18) mg/dL Creatinine (0.6-1.0) mg/dL Est Cr Clr Drug Dosing mL/min Estimated GFR (MDRD) (>60) Glucose (74-106) mg/dL Lactic Acid 1.3 (0.4-2.0) mmol/L Calcium (8.5-10.1) mg/dL Total Bilirubin (0.2-1.0) mg/dL AST (15-37) U/L ALT (12-78) U/L Alkaline Phosphatase (46-116) U/L Troponin I < 0.017 (0.000-0.056) ng/mL C-Reactive Protein (0.0-0.3) mg/dL Total Protein (6.4-8.2) g/dL Albumin (3.4-5.0) g/dL Globulin (2.3-3.5) g/dL Albumin/Globulin Ratio (1.2-2.2) Procalcitonin 2.67 H* ng/mL Influenza Type A RNA (NEGATIVE) RSV RNA (INAAT) (NEGATIVE) Influenza Type B RNA (NEGATIVE) SARS-CoV-2 RNA (EBONY) (NEGATIVE) 04/05/21 Range/Units 09:42 WBC (4.5-11.0) K/uL RBC (3.30-5.50) M/uL Hgb (12.0-15.0) g/dL Hct (36.0-48.0) % MCV (80-98) fL MCH (27-31) pg MCHC (32-36) % Plt Count (150-400) K/uL Add Manual Diff Neutrophils % (Manual) (36-66) % Band Neutrophils % (5-11) % Lymphocytes % (Manual) (24-44) % Monocytes % (Manual) (2-6) % D-Dimer, Quantitative 8028.04 H (0.0-500.0) ng/mL Sodium (140-148) mmol/L Potassium (3.6-5.2) mmol/L Chloride (100-108) mmol/L Carbon Dioxide (21-32) mmol/L Anion Gap (5.0-14.0) mmol/L BUN (7-18) mg/dL Creatinine (0.6-1.0) mg/dL Est Cr Clr Drug Dosing mL/min Estimated GFR (MDRD) (>60) Glucose (74-106) mg/dL Lactic Acid (0.4-2.0) mmol/L Calcium (8.5-10.1) mg/dL Total Bilirubin (0.2-1.0) mg/dL AST (15-37) U/L ALT (12-78) U/L Alkaline Phosphatase (46-116) U/L Troponin I (0.000-0.056) ng/mL C-Reactive Protein (0.0-0.3) mg/dL Total Protein (6.4-8.2) g/dL Albumin (3.4-5.0) g/dL Globulin (2.3-3.5) g/dL Albumin/Globulin Ratio (1.2-2.2) Procalcitonin ng/mL Influenza Type A RNA (NEGATIVE) RSV RNA (INAAT) (NEGATIVE) Influenza Type B RNA (NEGATIVE) SARS-CoV-2 RNA (EBONY) (NEGATIVE) Result Diagrams: 04/06/21 04:45 04/06/21 04:45 Sepsis Event Note - Evaluation Sepsis Screening Result: Possible Sepsis Risk - Focused Exam Vital Signs: Vital Signs Temp Pulse Resp BP Pulse Ox 04/05/21 11:14 98.1 F 88 18 121/63 98 04/05/21 11:10 88 26 H 121/63 98 04/05/21 10:43 96 93/51 L 04/05/21 10:00 99.8 F 92 26 H 82/43 L 94 L 04/05/21 09:59 97 29 H 82/43 L 93 L 04/05/21 09:54 98 78/41 L 95 04/05/21 09:47 98 30 H 71/35 L 95 04/05/21 09:23 102 H 25 H 77/39 L 94 L 04/05/21 09:11 82/36 L 04/05/21 09:03 100.4 F 110 H 22 H 74/36 L 94 L 04/05/21 07:30 102.8 F H 04/05/21 06:45 97.1 F 132 H 30 H 107/62 91 L Problem List Initiated/Reviewed/Updated: Yes Orders Last 24hrs: Active Orders 24 hr Category Date Time Status Cardiac Monitoring [RC] .As Directed Care 04/05/21 06:55 Active EKG Documentation Completion [RC] ASDIRECTED Care 04/05/21 07:20 Active RT Aerosol Therapy [RC] ASDIRECTED Care 04/05/21 07:20 Active Vital Signs [RC] Q1H Care 04/05/21 07:18 Active Chest 1V Frontal [CR] Urgent Exams 04/05/21 07:19 Taken CULTURE BLOOD [BC] Urgent Lab 04/05/21 07:50 Received CULTURE BLOOD [BC] Urgent Lab 04/05/21 08:05 Received UA W/MICROSCOPIC [URIN] Urgent Lab 04/05/21 11:48 Ordered Norepinephrine [Levophed] 4 mg Med 04/05/21 10:00 Active Dextrose 5% in Water 246 ml IV TITRATE Piperacillin/Tazobactam [Zosyn] 4.5 gm Med 04/05/21 07:30 Active Sodium Chloride 0.9% [Normal Saline] 100 ml IV Q6H Blood Culture x2 Reflex Set [OM.PC] Urgent Oth 04/05/21 07:18 Ordered EKG 12 Lead [EK] Stat Ther 04/05/21 07:19 Ordered Medication Orders Piperacillin Sod/Tazobactam (Sod 4.5 gm/ Sodium Chloride) 100 mls @ 200 mls/hr IV Q6H [facility] Last Admin: 04/05/21 08:10 Dose: 200 mls/hr Documented by: LADI Norepinephrine Bitartrate 4 mg (/ Dextrose/Water) 250 mls @ 7.5 mls/hr IV TITRATE CHASITY; Protocol Last Admin: 04/05/21 10:00 Dose: 2 mcg/min, 7.5 mls/hr Documented by: LADI Assessment/Plan Comment:: Assessment/Plan: #1. Fever, chills, respiratory distress, lymph nodes right lung. D-dimmer elevated with neg CT Angiogram of chest for PE.except sepsis: Blood cultures and urine cultures pending. The lymph nodes are of concern. 2. Hypotension: Continue with Levophed to maintain blood pressure. #3. Mild hypokalemia: Will replace K+. #4. Hypotension: Will continue with Levophed and adjust according to the blood pressure #5. CRF: eGFR 23 Will replace fluids and monitor. #6. CPR elevation: 7.6 unknown source or cause Will admit to the ICU. - Mortality Measure Prognosis:: Good
[2021-04-05] MEDS ORDERED: Enoxaparin 40 MG/0.4 ML Syringe SUBCUT SCH (12:30)
[2021-04-05] MEDS ORDERED: Enoxaparin 30 MG/0.3 ML Syringe SUBCUT SCH (13:30)
[2021-04-05] MEDS: Piperacillin/Tazobactam/Dext 3.375 GM in Premix Bag 1 BAG IV SCH ×2 (14:11→19:10)
[2021-04-05] MEDS: hydrOXYzine HCl 25 MG Tab PO PRN (15:05)
[2021-04-05] MEDS: Sodium Chloride 0.9% 1,000 ML IV SCH ×2 (15:40→23:58)
[2021-04-05] MEDS: Potassium Chloride 20 MEQ Tab.ER PO SCH (17:39)
[2021-04-05] MEDS: Acetaminophen 500 MG Tab PO PRN (19:41)
[2021-04-05] MEDS: Albuterol/Ipratropium 3.0-0.5 MG/3 ML Neb Soln NEB PRN (19:41)
[2021-04-06] MEDS: Piperacillin/Tazobactam/Dext 3.375 GM in Premix Bag 1 BAG IV SCH ×4 (01:09→20:23)
[2021-04-06] MEDS: Acetaminophen 500 MG Tab PO PRN ×4 (01:09→21:13)
[2021-04-06] MEDS: Albuterol/Ipratropium 3.0-0.5 MG/3 ML Neb Soln NEB PRN ×2 (05:36→23:58)
[2021-04-06] MEDS: hydrOXYzine HCl 25 MG Tab PO PRN ×2 (05:43→21:12)
[2021-04-06] MEDS: Sodium Chloride 0.9% 1,000 ML IV SCH ×2 (08:20→16:48)
[2021-04-06] MEDS: Levothyroxine 88 MCG Tab PO SCH (08:25)
[2021-04-06] MEDS: Potassium Chloride 20 MEQ Tab.ER PO SCH ×2 (08:52→16:53)
[2021-04-06] MEDS: Cholecalciferol (Vitamin D3) 25 MCG Tab PO SCH (08:54)
[2021-04-06] MEDS: Hydrochlorothiazide 25 MG Tab PO SCH (08:54)
[2021-04-06] MEDS ORDERED: Non-Formulary Medication 1 Each (Magnesium Oxide [Magnesium] 400 MG Tablet) PO SCH (09:00)
[2021-04-06] MEDS ORDERED: Magnesium Oxide 400 MG Tab PO SCH (09:00)
[2021-04-06] MEDS ORDERED: Non-Formulary Medication 1 Each (Cholecalciferol (Vitamin D3) [Vitamin D3] 5,000 UNIT Caps PO SCH (09:00)
[2021-04-06] MEDS: Doxycycline 100 MG Cap PO SCH ×2 (09:05→21:12)
--- NOTE | 2021-04-06 10:40 | CR ---
CHEST: Portable 04/05/2021 at 8:19 AM CLINICAL HISTORY:SOB COMPARISON:2018 FINDINGS: The heart size, pulmonary vascularity and hilar structures are normal. No infiltrate effusion or pneumothorax is seen. There are atherosclerotic changes in the aorta. IMPRESSION: No acute cardiopulmonary process.
[2021-04-06] MEDS: Norepinephrine 4 MG in Dextrose 5% in Water 246 ML IV SCH ×2 (14:53)
--- NOTE | 2021-04-06 20:11 | PCM.PN ---
- General Info Date of Service: 04/06/21 Subjective Update: Had a fever up to 102 this morning. Again give a history of multiple tick bites. - Review of Systems General: Reports: Fever, Weakness HEENT: Reports: No Symptoms Pulmonary: Reports: Shortness of Breath, Cough Cardiovascular: Reports: No Symptoms Gastrointestinal: Reports: Nausea Genitourinary: Reports: No Symptoms Musculoskeletal: Reports: No Symptoms Skin: Reports: No Symptoms Neurological: Reports: Weakness Psychiatric: Reports: Suicidal Ideation - Patient Data Vitals - Most Recent: Last Vital Signs Temp 98.0 F 04/06/21 16:00 Pulse 101 H 04/06/21 18:00 Resp 20 04/06/21 18:00 BP 105/57 L 04/06/21 18:00 Pulse Ox 92 L 04/06/21 18:00 Weight - Most Recent: 168 lb 6.4 oz I&O - Last 24 Hours: Intake & Output 04/06/21 04/06/21 04/06/21 06:59 14:59 22:59 Intake Total 1501 820 220 Output Total 685 419 5691 Balance 801 320 -880 Lab Results Last 24 Hours: Laboratory Results - last 24 hr 04/06/21 04/06/21 04/06/21 Range/Units 04:45 04:45 08:10 WBC 4.9 (4.5-11.0) K/uL RBC 4.64 (3.30-5.50) M/uL Hgb 13.7 (12.0-15.0) g/dL Hct 41.8 (36.0-48.0) % MCV 90 (80-98) fL MCH 30 (27-31) pg MCHC 33 (32-36) % Plt Count 53 L (150-400) K/uL Add Manual Diff Yes Neutrophils % (Manual) 58 (36-66) % Band Neutrophils % 31 H (5-11) % Lymphocytes % (Manual) 6 L (24-44) % Monocytes % (Manual) 5 (2-6) % Sodium 139 L (140-148) mmol/L Potassium 3.2 L (3.6-5.2) mmol/L Chloride 102 (100-108) mmol/L Carbon Dioxide 30 (21-32) mmol/L Anion Gap 10.2 (5.0-14.0) mmol/L BUN 25 H (7-18) mg/dL Creatinine 1.4 H (0.6-1.0) mg/dL Est Cr Clr Drug Dosing 26.19 mL/min Estimated GFR (MDRD) 36 L (>60) Glucose 93 (74-106) mg/dL Calcium 7.5 L (8.5-10.1) mg/dL Total Bilirubin 0.9 D (0.2-1.0) mg/dL AST 207 H D (15-37) U/L ALT 126 H (12-78) U/L Alkaline Phosphatase 116 (46-116) U/L Total Protein 5.0 L (6.4-8.2) g/dL Albumin 2.2 L (3.4-5.0) g/dL Globulin 2.8 (2.3-3.5) g/dL Albumin/Globulin Ratio 0.8 L (1.2-2.2) Lyme Disease IgG Ab Negative (Negative) Lyme Disease IgM Ab Negative (Negative) Andrew Results Last 24 Hours: Microbiology 04/05/21 08:05 Aerobic Blood Culture - Preliminary Blood - Venous - Lab Draw NO GROWTH AFTER 1 DAY Anaerobic Blood Culture - Preliminary NO GROWTH AFTER 1 DAY 04/05/21 07:50 Aerobic Blood Culture - Preliminary Blood - Venous NO GROWTH AFTER 1 DAY Anaerobic Blood Culture - Preliminary NO GROWTH AFTER 1 DAY Med Orders - Current: Current Medications Acetaminophen (Acetaminophen 500 Mg Tab) 500 mg PO Q6H PRN PRN Reason: Fever Last Admin: 04/06/21 13:44 Dose: 500 mg Documented by: Albuterol/Ipratropium (Albuterol/Ipratropium 3.0-0.5 Mg/3 Ml Neb Soln) 3 ml NEB Q4H PRN PRN Reason: Shortness of Breath Last Admin: 04/06/21 05:36 Dose: 3 ml Documented by: Cholecalciferol (Cholecalciferol (Vitamin D3) 25 Mcg Tab) 125 mcg PO DAILY [facility] Last Admin: 04/06/21 08:54 Dose: 125 mcg Documented by: Doxycycline Hyclate (Doxycycline 100 Mg Cap) 100 mg PO BID [facility] Last Admin: 04/06/21 09:05 Dose: 100 mg Documented by: Enoxaparin Sodium (Enoxaparin 30 Mg/0.3 Ml Syringe) 30 mg SUBCUT Q24H [facility] Last Admin: 04/05/21 14:10 Dose: 30 mg Documented by: Hydrochlorothiazide (Hydrochlorothiazide 25 Mg Tab) 50 mg PO DAILY [facility] Last Admin: 04/06/21 08:54 Dose: 50 mg Documented by: Hydroxyzine HCl (Hydroxyzine Hcl 25 Mg Tab) 25 mg PO Q4H PRN PRN Reason: Other Last Admin: 04/06/21 05:43 Dose: 25 mg Documented by: Norepinephrine Bitartrate 4 mg (/ Dextrose/Water) 250 mls @ 7.5 mls/hr IV TITRATE [facility]; Protocol Last Admin: 04/06/21 14:53 Dose: 2 mcg/min, 7.5 mls/hr Documented by: Sodium Chloride (Normal Saline) 1,000 mls @ 125 mls/hr IV ASDIRECTED [facility] Last Admin: 04/06/21 16:48 Dose: 125 mls/hr Documented by: Piperacillin/Tazobactam/ (Dextrose 3.375 gm/ Premix) 50 mls @ 100 mls/hr IV Q6H [facility] Last Admin: 04/06/21 13:44 Dose: 100 mls/hr Documented by: Levothyroxine Sodium (Levothyroxine 88 Mcg Tab) 88 mcg PO ACBREAKFAST [facility] Last Admin: 04/06/21 08:25 Dose: 88 mcg Documented by: Magnesium Oxide (Magnesium Oxide 400 Mg Tab) 400 mg PO QPM [facility] Potassium Chloride (Potassium Chloride 20 Meq Tab.Er) 20 meq PO BIDMEALS [facility] Last Admin: 04/06/21 16:53 Dose: 20 meq Documented by: Discontinued Medications Acetaminophen (Acetaminophen 325 Mg Tab) 650 mg PO NOW ONE Stop: 04/05/21 07:30 Last Admin: 04/05/21 08:10 Dose: 650 mg Documented by: Albuterol/Ipratropium (Albuterol/Ipratropium 3.0-0.5 Mg/3 Ml Neb Soln) 3 ml NEB ONETIME ONE Stop: 04/05/21 07:20 Last Admin: 04/05/21 08:25 Dose: 3 ml Documented by: Lactated Ringer's (Ringers, Lactated) 1,000 mls @ 999 mls/hr IV ASDIRECTED [facility] Last Admin: 04/05/21 08:10 Dose: 999 mls/hr Documented by: Piperacillin Sod/Tazobactam (Sod 4.5 gm/ Sodium Chloride) 100 mls @ 200 mls/hr IV Q6H [facility] Last Admin: 04/05/21 08:10 Dose: 200 mls/hr Documented by: Lactated Ringer's (Ringers, Lactated) 1,000 mls @ 999 mls/hr IV BOLUS ONE Stop: 04/05/21 10:25 Last Admin: 04/05/21 09:30 Dose: 999 mls/hr Documented by: Sodium Chloride (Normal Saline) 100 mls @ 4 mls/sec IV ASDIRECTED STA Stop: 04/05/21 10:34 Last Admin: 04/05/21 11:24 Dose: 4 mls/sec Documented by: Iopamidol (Iopamidol 755 Mg/Ml 100 Ml Bottle) 100 ml IV . DIRECTED STA Stop: 04/05/21 10:34 Last Admin: 04/05/21 11:24 Dose: 100 ml Documented by: Magnesium Oxide (Magnesium Oxide 400 Mg Tab) 400 mg PO DAILY [facility] Last Admin: 04/06/21 08:56 Dose: 400 mg Documented by: - Exam General: Alert, Oriented HEENT: Pupils Equal, Pupils Reactive, EOMI, Mucous Membr. Moist/[place] Neck: Supple Lungs: Clear to Auscultation, Normal Respiratory Effort - Patient Data Lab Results Last 24 hrs: Laboratory Results - last 24 hr 04/06/21 04/06/21 04/06/21 Range/Units 04:45 04:45 08:10 WBC 4.9 (4.5-11.0) K/uL RBC 4.64 (3.30-5.50) M/uL Hgb 13.7 (12.0-15.0) g/dL Hct 41.8 (36.0-48.0) % MCV 90 (80-98) fL MCH 30 (27-31) pg MCHC 33 (32-36) % Plt Count 53 L (150-400) K/uL Add Manual Diff Yes Neutrophils % (Manual) 58 (36-66) % Band Neutrophils % 31 H (5-11) % Lymphocytes % (Manual) 6 L (24-44) % Monocytes % (Manual) 5 (2-6) % Sodium 139 L (140-148) mmol/L Potassium 3.2 L (3.6-5.2) mmol/L Chloride 102 (100-108) mmol/L Carbon Dioxide 30 (21-32) mmol/L Anion Gap 10.2 (5.0-14.0) mmol/L BUN 25 H (7-18) mg/dL Creatinine 1.4 H (0.6-1.0) mg/dL Est Cr Clr Drug Dosing 26.19 mL/min Estimated GFR (MDRD) 36 L (>60) Glucose 93 (74-106) mg/dL Calcium 7.5 L (8.5-10.1) mg/dL Total Bilirubin 0.9 D (0.2-1.0) mg/dL AST 207 H D (15-37) U/L ALT 126 H (12-78) U/L Alkaline Phosphatase 116 (46-116) U/L Total Protein 5.0 L (6.4-8.2) g/dL Albumin 2.2 L (3.4-5.0) g/dL Globulin 2.8 (2.3-3.5) g/dL Albumin/Globulin Ratio 0.8 L (1.2-2.2) Lyme Disease IgG Ab Negative (Negative) Lyme Disease IgM Ab Negative (Negative) Result Diagrams: 04/06/21 04:45 04/06/21 04:45 Andrew Results Last 24 hrs: Microbiology 04/05/21 08:05 Aerobic Blood Culture - Preliminary Blood - Venous - Lab Draw NO GROWTH AFTER 1 DAY Anaerobic Blood Culture - Preliminary NO GROWTH AFTER 1 DAY 04/05/21 07:50 Aerobic Blood Culture - Preliminary Blood - Venous NO GROWTH AFTER 1 DAY Anaerobic Blood Culture - Preliminary NO GROWTH AFTER 1 DAY Sepsis Event Note - Evaluation Sepsis Screening Result: Sepsis Risk - Focused Exam Vital Signs: Vital Signs Temp Pulse Resp BP Pulse Ox 04/06/21 18:00 101 H 20 105/57 L 92 L 04/06/21 17:00 89 18 125/53 L 92 L 04/06/21 16:00 98.0 F 88 24 H 119/70 93 L 04/06/21 15:00 100 29 H 109/59 L 93 L 04/06/21 14:00 106 H 27 H 106/50 L 93 L 04/06/21 13:00 114 H 23 H 114/74 95 04/06/21 11:44 101.8 F H 04/06/21 11:00 114 H 28 H 107/68 94 L 04/06/21 10:00 120 H 28 H 99/52 L 92 L 04/06/21 09:00 121 H 33 H 96/50 L 90 L - Problem List Review Problem List Initiated/Reviewed/Updated: Yes - My Orders Last 24 Hours: My Active Orders 04/05/21 19:33 Acetaminophen [Tylenol Extra Strength] 500 mg PO Q6H PRN Albuterol/Ipratropium [DuoNeb 3.0-0.5 MG/3 ML] 3 ml NEB Q4H PRN 04/06/21 07:30 Levothyroxine [Synthroid] 88 mcg PO ACBREAKFAST 04/06/21 07:55 SCD [Sequential Compression Device] [OM.PC] Routine 04/06/21 08:10 BABESIA MICROTI ANTIBODY PANEL Routine EHRLICHIA AB PANEL Routine HUMAN GRANULOCYTIC JENNIE-HGE Routine 04/06/21 09:00 Cholecalciferol (Vitamin D3) [Vitamin D3] 125 mcg PO DAILY Doxycycline [Vibramycin] 100 mg PO BID hydroCHLOROthiazide 50 mg PO DAILY 04/07/21 04:30 CBC WITH AUTO DIFF [HEME] Routine 04/07/21 05:00 CXR [Chest 2V] [CR] Routine 04/07/21 05:11 COMPREHENSIVE METABOLIC PN,CMP [CHEM] AM 04/07/21 17:00 Magnesium Oxide 400 mg PO QPM - Plan Plan:: Assessment/Plan: #1. Sepsis: Blood cultures and urine cultures pending. The lymph nodes are of concern. With the history of tick bites I have started her on Doxycycline 100 mg bid. s Will check a repeat CXR in the morning. She is still on O2 at 4 liters in order to keep the O2 levels in the 90s. WBC normal. 2. Hypotension: Continue with Levophed to maintain blood pressure. #3. Mild hypokalemia: Will continue with K+ supplement. #4. Hypotension: Will continue with Levophed and adjust according to the blood pressure #5. CRF: eGFR 23 Will continue replace fluids and monitor. #6. CPR elevation: 7.6 unknown source or cause
[2021-04-07] MEDS: guaiFENesin/Dextromethorphan 100-10 MG/5 ML Soln 10 ML Cup PO PRN ×4 (00:55→18:47)
[2021-04-07] MEDS: Sodium Chloride 0.9% 1,000 ML IV SCH ×2 (01:16→10:27)
[2021-04-07] MEDS: Piperacillin/Tazobactam/Dext 3.375 GM in Premix Bag 1 BAG IV SCH ×3 (02:18→13:17)
--- NOTE | 2021-04-07 05:16 | CRLCR ---
For Patients: As a result of the Cures Act, medical imaging exams and procedure reports are released immediately into your electronic medical record. You may view this report before your referring provider. If you have questions, please contact your health care provider. INDICATION: Pneumonia TECHNIQUE: Chest radiograph 2 views COMPARISON: 04/05/2021 FINDINGS: Mediastinum: The mediastinum is normal in appearance. The heart silhouette is normal in size and morphology. Lung: New consolidation in the left lower lobe with moderate left pleural effusion and mild airspace opacity in the right lung base with small right pleural effusion seen. Bone and Soft tissue: Unremarkable for age. IMPRESSION: 1. New consolidation in the left lower lobe with moderate left pleural effusion and mild airspace opacity in the right lung base with small right pleural effusion seen. Dictated by David Wakefield MD @ 04/07/2021 5:15:04 AM Dictated by: David Wakefield MD @ 04/07/2021 05:15:07 (Electronically Signed)
[2021-04-07] MEDS ORDERED: Benzonatate 100 MG Cap PO PRN (05:27)
[2021-04-07] MEDS ORDERED: Potassium Chloride 20 MEQ in Premix Bag 1 BAG IV SCH (06:00)
[2021-04-07] MEDS: Levothyroxine 88 MCG Tab PO SCH (07:30)
[2021-04-07] MEDS: Potassium Chloride 20 MEQ Tab.ER PO SCH ×2 (07:37→16:55)
[2021-04-07] MEDS ORDERED: Potassium Chloride 20 MEQ, Lidocaine 1% 2 ML in Sodium Chloride 0.9% 100 ML IV ONE (07:45)
[2021-04-07] MEDS: Acetaminophen 500 MG Tab PO PRN ×3 (07:47→21:54)
[2021-04-07] MEDS: hydrOXYzine HCl 25 MG Tab PO PRN ×3 (07:47→21:53)
[2021-04-07] MEDS: Doxycycline 100 MG Cap PO SCH ×2 (08:06→21:05)
[2021-04-07] MEDS: Cholecalciferol (Vitamin D3) 25 MCG Tab PO SCH (08:06)
[2021-04-07] MEDS ORDERED: Albumin Human 50 GM in Premix Bag 1 BAG IV ONE (09:10)
[2021-04-07] MEDS: Hydrochlorothiazide 25 MG Tab PO SCH (09:16)
[2021-04-07] MEDS: Albumin Human 25 GM in Premix Bag 1 BAG IV SCH ×2 (09:48→13:15)
[2021-04-07] MEDS: Albuterol/Ipratropium 3.0-0.5 MG/3 ML Neb Soln NEB PRN ×2 (11:08→18:29)
[2021-04-07] MEDS ORDERED: diphenhydrAMINE 25 MG Cap PO ONE (14:30)
--- NOTE | 2021-04-07 16:13 | PCM.PN ---
- General Info Date of Service: 04/07/21 Admission Dx/Problem (Free Text): She has a new rash that started after Zosyn given. She is itching. Functional Status: Reports: Pain Controlled - Review of Systems General: Reports: No Symptoms HEENT: Reports: No Symptoms Pulmonary: Reports: Cough Cardiovascular: Reports: No Symptoms Gastrointestinal: Reports: No Symptoms Genitourinary: Reports: No Symptoms Musculoskeletal: Reports: No Symptoms Skin: Reports: Pruritis, Rash Neurological: Reports: Weakness - Patient Data Vitals - Most Recent: Last Vital Signs Temp 97.8 F 04/07/21 15:00 Pulse 94 04/07/21 15:00 Resp 27 H 04/07/21 15:00 BP 129/70 04/07/21 15:00 Pulse Ox 97 04/07/21 15:00 Weight - Most Recent: 170 lb 13.732 oz I&O - Last 24 Hours: Intake & Output 04/07/21 04/07/21 04/07/21 06:59 14:59 22:59 Intake Total 1623 612 Output Total 800 400 Balance 823 212 Lab Results Last 24 Hours: Laboratory Results - last 24 hr 04/07/21 04/07/21 Range/Units 04:25 04:25 WBC 4.6 (4.5-11.0) K/uL RBC 4.14 (3.30-5.50) M/uL Hgb 12.4 (12.0-15.0) g/dL Hct 37.7 (36.0-48.0) % MCV 91 (80-98) fL MCH 30 (27-31) pg MCHC 33 (32-36) % Plt Count 31 L (150-400) K/uL Add Manual Diff Yes Neutrophils % (Manual) 59 (36-66) % Band Neutrophils % 27 H (5-11) % Lymphocytes % (Manual) 10 L (24-44) % Monocytes % (Manual) 4 (2-6) % Sodium 143 (140-148) mmol/L Potassium 2.9 L* (3.6-5.2) mmol/L Chloride 107 (100-108) mmol/L Carbon Dioxide 28 (21-32) mmol/L Anion Gap 10.9 (5.0-14.0) mmol/L BUN 19 H (7-18) mg/dL Creatinine 1.2 H (0.6-1.0) mg/dL Est Cr Clr Drug Dosing 30.29 mL/min Estimated GFR (MDRD) 43 L (>60) Glucose 85 (74-106) mg/dL Calcium 7.3 L (8.5-10.1) mg/dL Total Bilirubin 0.8 (0.2-1.0) mg/dL AST 150 H (15-37) U/L ALT 103 H (12-78) U/L Alkaline Phosphatase 150 H (46-116) U/L Total Protein 4.4 L (6.4-8.2) g/dL Albumin 1.9 L (3.4-5.0) g/dL Globulin 2.5 (2.3-3.5) g/dL Albumin/Globulin Ratio 0.8 L (1.2-2.2) Andrew Results Last 24 Hours: Microbiology 04/05/21 07:50 Aerobic Blood Culture - Preliminary Blood - Venous NO GROWTH AFTER 2 DAYS Anaerobic Blood Culture - Preliminary NO GROWTH AFTER 2 DAYS 04/05/21 08:05 Aerobic Blood Culture - Preliminary Blood - Venous - Lab Draw NO GROWTH AFTER 2 DAYS Anaerobic Blood Culture - Preliminary NO GROWTH AFTER 2 DAYS Med Orders - Current: Current Medications Acetaminophen (Acetaminophen 500 Mg Tab) 500 mg PO Q6H PRN PRN Reason: Fever Last Admin: 04/07/21 14:10 Dose: 500 mg Documented by: Albuterol/Ipratropium (Albuterol/Ipratropium 3.0-0.5 Mg/3 Ml Neb Soln) 3 ml NEB Q4H PRN PRN Reason: Shortness of Breath Last Admin: 04/07/21 11:08 Dose: 3 ml Documented by: Benzonatate (Benzonatate 100 Mg Cap) 100 mg PO Q6H PRN PRN Reason: Cough Last Admin: 04/07/21 08:06 Dose: 100 mg Documented by: Cholecalciferol (Cholecalciferol (Vitamin D3) 25 Mcg Tab) 125 mcg PO DAILY [facility] Last Admin: 04/07/21 08:06 Dose: 125 mcg Documented by: Doxycycline Hyclate (Doxycycline 100 Mg Cap) 100 mg PO BID [facility] Last Admin: 04/07/21 08:06 Dose: 100 mg Documented by: Enoxaparin Sodium (Enoxaparin 30 Mg/0.3 Ml Syringe) 30 mg SUBCUT Q24H [facility] Last Admin: 04/05/21 14:10 Dose: 30 mg Documented by: Guaifenesin/Dextromethorphan (Guaifenesin/Dextromethorphan 100-10 Mg/5 Ml Soln 10 Ml Cup) 10 ml PO Q4H PRN PRN Reason: Cough Last Admin: 04/07/21 10:56 Dose: 10 ml Documented by: Hydrochlorothiazide (Hydrochlorothiazide 25 Mg Tab) 50 mg PO DAILY [facility] Last Admin: 04/07/21 09:16 Dose: Not Given Documented by: Hydroxyzine HCl (Hydroxyzine Hcl 25 Mg Tab) 25 mg PO Q4H PRN PRN Reason: Other Last Admin: 04/07/21 14:10 Dose: 25 mg Documented by: Norepinephrine Bitartrate 4 mg (/ Dextrose/Water) 250 mls @ 7.5 mls/hr IV TITRATE [facility]; Protocol Last Titration: 04/06/21 22:56 Dose: 0 mcg/min, 0 mls/hr Documented by: Sodium Chloride (Normal Saline) 1,000 mls @ 125 mls/hr IV ASDIRECTED [facility] Last Admin: 04/07/21 10:27 Dose: 125 mls/hr Documented by: Piperacillin/Tazobactam/ (Dextrose 3.375 gm/ Premix) 50 mls @ 100 mls/hr IV Q6H [facility] Last Admin: 04/07/21 13:17 Dose: 100 mls/hr Documented by: Albumin Human 25 gm/ Premix 100 mls @ 25 mls/hr IV Q4H [facility] Stop: 04/07/21 17:14 Last Admin: 04/07/21 13:15 Dose: 25 mls/hr Documented by: Levothyroxine Sodium (Levothyroxine 88 Mcg Tab) 88 mcg PO ACBREAKFAST [facility] Last Admin: 04/07/21 07:30 Dose: 88 mcg Documented by: Magnesium Oxide (Magnesium Oxide 400 Mg Tab) 400 mg PO QPM [facility] Potassium Chloride (Potassium Chloride 20 Meq Tab.Er) 40 meq PO BIDMEALS [facility] Last Admin: 04/07/21 07:37 Dose: 40 meq Documented by: Discontinued Medications Acetaminophen (Acetaminophen 325 Mg Tab) 650 mg PO NOW ONE Stop: 04/05/21 07:30 Last Admin: 04/05/21 08:10 Dose: 650 mg Documented by: Albuterol/Ipratropium (Albuterol/Ipratropium 3.0-0.5 Mg/3 Ml Neb Soln) 3 ml NEB ONETIME ONE Stop: 04/05/21 07:20 Last Admin: 04/05/21 08:25 Dose: 3 ml Documented by: Diphenhydramine HCl (Diphenhydramine 25 Mg Cap) 50 mg PO ONETIME ONE Stop: 04/07/21 14:31 Last Admin: 04/07/21 14:34 Dose: 50 mg Documented by: Lactated Ringer's (Ringers, Lactated) 1,000 mls @ 999 mls/hr IV ASDIRECTED [facility] Last Admin: 04/05/21 08:10 Dose: 999 mls/hr Documented by: Piperacillin Sod/Tazobactam (Sod 4.5 gm/ Sodium Chloride) 100 mls @ 200 mls/hr IV Q6H [facility] Last Admin: 04/05/21 08:10 Dose: 200 mls/hr Documented by: Lactated Ringer's (Ringers, Lactated) 1,000 mls @ 999 mls/hr IV BOLUS ONE Stop: 04/05/21 10:25 Last Admin: 04/05/21 09:30 Dose: 999 mls/hr Documented by: Sodium Chloride (Normal Saline) 100 mls @ 4 mls/sec IV ASDIRECTED [facility] Stop: 04/05/21 10:34 Last Admin: 04/05/21 11:24 Dose: 4 mls/sec Documented by: Potassium Chloride 20 meq/ (Premix) 0 mls @ 0 mls/hr IV Q2H [facility] Stop: 04/07/21 08:01 Last Admin: 04/07/21 05:41 Dose: 50 mls/hr Documented by: Potassium Chloride 20 meq/Lidocaine HCl 2 ml/ Sodium Chloride 112 mls @ 56 mls/hr IV ONETIME ONE Stop: 04/07/21 09:44 Last Admin: 04/07/21 07:26 Dose: 56 mls/hr Documented by: Iopamidol (Iopamidol 755 Mg/Ml 100 Ml Bottle) 100 ml IV . DIRECTED [facility] Stop: 04/05/21 10:34 Last Admin: 04/05/21 11:24 Dose: 100 ml Documented by: Lidocaine HCl (Lidocaine 1% 5 Ml Sdv) 2 ml INJECT ONETIME ONE Stop: 04/07/21 05:30 Last Admin: 04/07/21 05:42 Dose: 2 ml Documented by: Magnesium Oxide (Magnesium Oxide 400 Mg Tab) 400 mg PO DAILY [facility] Last Admin: 04/06/21 08:56 Dose: 400 mg Documented by: Potassium Chloride (Potassium Chloride 20 Meq Tab.Er) 20 meq PO BIDMEALS [facility] Last Admin: 04/06/21 16:53 Dose: 20 meq Documented by: - Exam General: Alert, Oriented HEENT: Pupils Equal, Pupils Reactive Neck: Supple Lungs: Clear to Auscultation, Normal Respiratory Effort Cardiovascular: Regular Rate, Regular Rhythm GI/Abdominal Exam: Normal Bowel Sounds, Soft, No Organomegaly Back Exam: Normal Inspection Extremities: Normal Inspection, Normal Range of Motion Peripheral Pulses: 1+: Radial (L), Radial (R) Skin: Warm, Dry, Intact Psy/Mental Status: Alert, Normal Affect, Normal Mood - Patient Data Lab Results Last 24 hrs: Laboratory Results - last 24 hr 04/07/21 04/07/21 Range/Units 04:25 04:25 WBC 4.6 (4.5-11.0) K/uL RBC 4.14 (3.30-5.50) M/uL Hgb 12.4 (12.0-15.0) g/dL Hct 37.7 (36.0-48.0) % MCV 91 (80-98) fL MCH 30 (27-31) pg MCHC 33 (32-36) % Plt Count 31 L (150-400) K/uL Add Manual Diff Yes Neutrophils % (Manual) 59 (36-66) % Band Neutrophils % 27 H (5-11) % Lymphocytes % (Manual) 10 L (24-44) % Monocytes % (Manual) 4 (2-6) % Sodium 143 (140-148) mmol/L Potassium 2.9 L* (3.6-5.2) mmol/L Chloride 107 (100-108) mmol/L Carbon Dioxide 28 (21-32) mmol/L Anion Gap 10.9 (5.0-14.0) mmol/L BUN 19 H (7-18) mg/dL Creatinine 1.2 H (0.6-1.0) mg/dL Est Cr Clr Drug Dosing 30.29 mL/min Estimated GFR (MDRD) 43 L (>60) Glucose 85 (74-106) mg/dL Calcium 7.3 L (8.5-10.1) mg/dL Total Bilirubin 0.8 (0.2-1.0) mg/dL AST 150 H (15-37) U/L ALT 103 H (12-78) U/L Alkaline Phosphatase 150 H (46-116) U/L Total Protein 4.4 L (6.4-8.2) g/dL Albumin 1.9 L (3.4-5.0) g/dL Globulin 2.5 (2.3-3.5) g/dL Albumin/Globulin Ratio 0.8 L (1.2-2.2) Result Diagrams: 04/07/21 04:25 04/07/21 04:25 Andrew Results Last 24 hrs: Microbiology 04/05/21 07:50 Aerobic Blood Culture - Preliminary Blood - Venous NO GROWTH AFTER 2 DAYS Anaerobic Blood Culture - Preliminary NO GROWTH AFTER 2 DAYS 04/05/21 08:05 Aerobic Blood Culture - Preliminary Blood - Venous - Lab Draw NO GROWTH AFTER 2 DAYS Anaerobic Blood Culture - Preliminary NO GROWTH AFTER 2 DAYS Sepsis Event Note - Evaluation Sepsis Screening Result: Sepsis Risk - Focused Exam Vital Signs: Vital Signs Temp Pulse Resp BP Pulse Ox 04/07/21 15:00 97.8 F 94 27 H 129/70 97 04/07/21 14:00 97.6 F 111 H 16 135/71 92 L 04/07/21 13:00 108 H 25 H 107/83 04/07/21 12:00 120 H 20 109/54 L 91 L 04/07/21 11:00 97.9 F 99 30 H 122/71 95 04/07/21 10:00 97.8 F 95 11 L 122/66 96 04/07/21 09:00 97.8 F 102 H 23 H 105/64 98 04/07/21 08:00 97.9 F 108 H 21 H 106/63 95 04/07/21 07:00 95 24 H 128/68 95 04/07/21 06:00 94 23 H 141/86 H 95 04/07/21 05:00 97.7 F 96 17 133/75 96 - Problem List Review Problem List Initiated/Reviewed/Updated: Yes - My Orders Last 24 Hours: My Active Orders 04/07/21 00:40 Dextromethorphan/guaiFENesin [Robitussin DM] 10 ml PO Q4H PRN 04/07/21 05:27 Benzonatate [Tessalon Perles] 100 mg PO Q6H PRN 04/07/21 08:00 Potassium Chloride [Klor-Con M20] 40 meq PO BIDMEALS 04/07/21 09:15 Albumin Human [Albumin 25%] 25 gm Premix Bag 1 bag IV Q4H 04/07/21 12:39 Dietary Supplements [RC] BIDMEALS 04/07/21 17:00 Magnesium Oxide 400 mg PO QPM 04/08/21 05:11 BASIC METABOLIC PANEL,BMP [CHEM] Routine CBC WITH AUTO DIFF [HEME] Routine - Plan Plan:: Assessment/Plan: #1. Sepsis: Blood cultures and urine cultures neg day 2. The lymph nodes are of concern. With the history of tick bites I have started her on Doxycycline 100 mg bid. WBC normal. PLTs 31,000 of concern. The CXR shows in creased infiltrate and will repeat in 2-3 days 2. Hypotension: resolved presently #3. Hypokalemia: Will continue with K+ supplement. #4 CRF: eGFR 23 Will continue replace fluids and monitor. #5. CPR elevation: 7.6 unknown source or cause
[2021-04-07] MEDS: Magnesium Oxide 400 MG Tab PO SCH (16:55)
[2021-04-07] MEDS ORDERED: Furosemide 20 MG/2 ML VIAL IVPUSH ONE ×2 (19:13→19:53)
[2021-04-07] MEDS ORDERED: Metoprolol Tartrate 25 MG Tab PO ONE ×2 (21:12→21:13)
[2021-04-08] MEDS: guaiFENesin/Dextromethorphan 100-10 MG/5 ML Soln 10 ML Cup PO PRN ×2 (03:48→08:28)
[2021-04-08] MEDS: Levothyroxine 88 MCG Tab PO SCH (07:56)
[2021-04-08] MEDS: Albuterol/Ipratropium 3.0-0.5 MG/3 ML Neb Soln NEB PRN (08:06)
[2021-04-08] MEDS: Potassium Chloride 20 MEQ Tab.ER PO SCH ×2 (08:24→17:00)
[2021-04-08] MEDS: Doxycycline 100 MG Cap PO SCH ×2 (08:24→21:27)
[2021-04-08] MEDS: Hydrochlorothiazide 25 MG Tab PO SCH (08:24)
[2021-04-08] MEDS: Cholecalciferol (Vitamin D3) 25 MCG Tab PO SCH (08:25)
[2021-04-08] MEDS: Metoprolol Tartrate 50 MG Tab PO SCH ×2 (09:52→21:27)
[2021-04-08] MEDS: Lisinopril 20 MG Tab PO SCH (09:53)
[2021-04-08] MEDS: Magnesium Oxide 400 MG Tab PO SCH (17:01)
--- NOTE | 2021-04-08 17:26 | PCM.PN ---
- General Info Date of Service: 04/08/21 Subjective Update: Yesterday she had significant fluid overload and we reduced her fluid by giving diuretics and she feels much better today. - Review of Systems General: Reports: Weakness HEENT: Reports: No Symptoms Pulmonary: Reports: No Symptoms Cardiovascular: Reports: No Symptoms Gastrointestinal: Reports: No Symptoms Genitourinary: Reports: No Symptoms Musculoskeletal: Reports: No Symptoms Skin: Reports: Rash Neurological: Reports: No Symptoms Psychiatric: Reports: No Symptoms - Patient Data Vitals - Most Recent: Last Vital Signs Temp 98 F 04/08/21 15:00 Pulse 94 04/08/21 16:00 Resp 33 H 04/08/21 16:00 BP 128/75 04/08/21 16:00 Pulse Ox 94 L 04/08/21 16:00 Weight - Most Recent: 163 lb 5.8 oz I&O - Last 24 Hours: Intake & Output 04/08/21 04/08/21 04/08/21 06:59 14:59 22:59 Intake Total 200 Output Total 900 250 Balance -700 -250 Lab Results Last 24 Hours: Laboratory Results - last 24 hr 04/08/21 04/08/21 Range/Units 05:53 05:53 WBC 8.6 (4.5-11.0) K/uL RBC 3.90 (3.30-5.50) M/uL Hgb 11.4 L (12.0-15.0) g/dL Hct 34.2 L (36.0-48.0) % MCV 88 (80-98) fL MCH 29 (27-31) pg MCHC 33 (32-36) % Plt Count 35 L (150-400) K/uL Add Manual Diff Yes Neutrophils % (Manual) 52 (36-66) % Band Neutrophils % 4 L (5-11) % Lymphocytes % (Manual) 27 (24-44) % Monocytes % (Manual) 14 H (2-6) % Basophils % (Manual) 2 H (0-1) % Blast Cells % 1 % Sodium 141 (140-148) mmol/L Potassium 3.4 L (3.6-5.2) mmol/L Chloride 103 (100-108) mmol/L Carbon Dioxide 32 (21-32) mmol/L Anion Gap 9.4 (5.0-14.0) mmol/L BUN 17 (7-18) mg/dL Creatinine 1.1 H (0.6-1.0) mg/dL Est Cr Clr Drug Dosing 33.05 mL/min Estimated GFR (MDRD) 48 L (>60) Glucose 106 (74-106) mg/dL Calcium 8.1 L (8.5-10.1) mg/dL Andrew Results Last 24 Hours: Microbiology 04/05/21 07:50 Aerobic Blood Culture - Preliminary Blood - Venous NO GROWTH AFTER 3 DAYS Anaerobic Blood Culture - Preliminary NO GROWTH AFTER 3 DAYS 04/05/21 08:05 Aerobic Blood Culture - Preliminary Blood - Venous - Lab Draw NO GROWTH AFTER 3 DAYS Anaerobic Blood Culture - Preliminary NO GROWTH AFTER 3 DAYS Med Orders - Current: Current Medications Acetaminophen (Acetaminophen 500 Mg Tab) 500 mg PO Q6H PRN PRN Reason: Fever Last Admin: 04/07/21 21:54 Dose: 500 mg Documented by: Albuterol/Ipratropium (Albuterol/Ipratropium 3.0-0.5 Mg/3 Ml Neb Soln) 3 ml NEB Q4H PRN PRN Reason: Shortness of Breath Last Admin: 04/08/21 08:06 Dose: 3 ml Documented by: Benzonatate (Benzonatate 100 Mg Cap) 100 mg PO Q6H PRN PRN Reason: Cough Last Admin: 04/07/21 08:06 Dose: 100 mg Documented by: Cholecalciferol (Cholecalciferol (Vitamin D3) 25 Mcg Tab) 125 mcg PO DAILY [facility] Last Admin: 04/08/21 08:25 Dose: 125 mcg Documented by: Doxycycline Hyclate (Doxycycline 100 Mg Cap) 100 mg PO BID [facility] Last Admin: 04/08/21 08:24 Dose: 100 mg Documented by: Enoxaparin Sodium (Enoxaparin 30 Mg/0.3 Ml Syringe) 30 mg SUBCUT Q24H [facility] Last Admin: 04/05/21 14:10 Dose: 30 mg Documented by: Guaifenesin/Dextromethorphan (Guaifenesin/Dextromethorphan 100-10 Mg/5 Ml Soln 10 Ml Cup) 10 ml PO Q4H PRN PRN Reason: Cough Last Admin: 04/08/21 08:28 Dose: 10 ml Documented by: Hydrochlorothiazide (Hydrochlorothiazide 25 Mg Tab) 50 mg PO DAILY [facility] Last Admin: 04/08/21 08:24 Dose: 50 mg Documented by: Hydroxyzine HCl (Hydroxyzine Hcl 25 Mg Tab) 25 mg PO Q4H PRN PRN Reason: Other Last Admin: 04/07/21 21:53 Dose: 25 mg Documented by: Levothyroxine Sodium (Levothyroxine 88 Mcg Tab) 88 mcg PO ACBREAKFAST [facility] Last Admin: 04/08/21 07:56 Dose: 88 mcg Documented by: Lisinopril (Lisinopril 20 Mg Tab) 40 mg PO DAILY [facility] Last Admin: 04/08/21 09:53 Dose: 40 mg Documented by: Magnesium Oxide (Magnesium Oxide 400 Mg Tab) 400 mg PO QPM [facility] Last Admin: 04/08/21 17:01 Dose: 400 mg Documented by: Metoprolol Tartrate (Metoprolol Tartrate 50 Mg Tab) 50 mg PO BID [facility] Last Admin: 04/08/21 09:52 Dose: 50 mg Documented by: Potassium Chloride (Potassium Chloride 20 Meq Tab.Er) 40 meq PO BIDMEALS [facility] Last Admin: 04/08/21 17:00 Dose: 40 meq Documented by: Discontinued Medications Acetaminophen (Acetaminophen 325 Mg Tab) 650 mg PO NOW ONE Stop: 04/05/21 07:30 Last Admin: 04/05/21 08:10 Dose: 650 mg Documented by: Albuterol/Ipratropium (Albuterol/Ipratropium 3.0-0.5 Mg/3 Ml Neb Soln) 3 ml NEB ONETIME ONE Stop: 04/05/21 07:20 Last Admin: 04/05/21 08:25 Dose: 3 ml Documented by: Diphenhydramine HCl (Diphenhydramine 25 Mg Cap) 50 mg PO ONETIME ONE Stop: 04/07/21 14:31 Last Admin: 04/07/21 14:34 Dose: 50 mg Documented by: Furosemide (Furosemide 20 Mg/2 Ml Vial) 20 mg IVPUSH ONETIME ONE Stop: 04/07/21 19:14 Last Admin: 04/07/21 19:23 Dose: 20 mg Documented by: Furosemide (Furosemide 20 Mg/2 Ml Vial) 20 mg IVPUSH ONETIME ONE Stop: 04/07/21 19:54 Last Admin: 04/07/21 20:00 Dose: 20 mg Documented by: Lactated Ringer's (Ringers, Lactated) 1,000 mls @ 999 mls/hr IV ASDIRECTED [facility] Last Admin: 04/05/21 08:10 Dose: 999 mls/hr Documented by: Piperacillin Sod/Tazobactam (Sod 4.5 gm/ Sodium Chloride) 100 mls @ 200 mls/hr IV Q6H [facility] Last Admin: 04/05/21 08:10 Dose: 200 mls/hr Documented by: Lactated Ringer's (Ringers, Lactated) 1,000 mls @ 999 mls/hr IV BOLUS ONE Stop: 04/05/21 10:25 Last Admin: 04/05/21 09:30 Dose: 999 mls/hr Documented by: Norepinephrine Bitartrate 4 mg (/ Dextrose/Water) 250 mls @ 7.5 mls/hr IV TITRATE [facility]; Protocol Last Titration: 04/06/21 22:56 Dose: 0 mcg/min, 0 mls/hr Documented by: Sodium Chloride (Normal Saline) 100 mls @ 4 mls/sec IV ASDIRECTED [facility] Stop: 04/05/21 10:34 Last Admin: 04/05/21 11:24 Dose: 4 mls/sec Documented by: Sodium Chloride (Normal Saline) 1,000 mls @ 125 mls/hr IV ASDIRECTED [facility] Last Admin: 04/07/21 10:27 Dose: 125 mls/hr Documented by: Piperacillin/Tazobactam/ (Dextrose 3.375 gm/ Premix) 50 mls @ 100 mls/hr IV Q6H [facility] Last Admin: 04/07/21 13:17 Dose: 100 mls/hr Documented by: Potassium Chloride 20 meq/ (Premix) 0 mls @ 0 mls/hr IV Q2H [facility] Stop: 04/07/21 08:01 Last Admin: 04/07/21 05:41 Dose: 50 mls/hr Documented by: Potassium Chloride 20 meq/Lidocaine HCl 2 ml/ Sodium Chloride 112 mls @ 56 mls/hr IV ONETIME ONE Stop: 04/07/21 09:44 Last Admin: 04/07/21 07:26 Dose: 56 mls/hr Documented by: Albumin Human 25 gm/ Premix 100 mls @ 25 mls/hr IV Q4H [facility] Stop: 04/07/21 17:14 Last Admin: 04/07/21 13:15 Dose: 25 mls/hr Documented by: Iopamidol (Iopamidol 755 Mg/Ml 100 Ml Bottle) 100 ml IV . DIRECTED [facility] Stop: 04/05/21 10:34 Last Admin: 04/05/21 11:24 Dose: 100 ml Documented by: Lidocaine HCl (Lidocaine 1% 5 Ml Sdv) 2 ml INJECT ONETIME ONE Stop: 04/07/21 05:30 Last Admin: 04/07/21 05:42 Dose: 2 ml Documented by: Magnesium Oxide (Magnesium Oxide 400 Mg Tab) 400 mg PO DAILY [facility] Last Admin: 04/06/21 08:56 Dose: 400 mg Documented by: Metoprolol Tartrate (Metoprolol Tartrate 25 Mg Tab) 25 mg PO ONETIME ONE Stop: 04/07/21 21:14 Last Admin: 04/07/21 21:19 Dose: 25 mg Documented by: Potassium Chloride (Potassium Chloride 20 Meq Tab.Er) 20 meq PO BIDMEALS [facility] Last Admin: 04/06/21 16:53 Dose: 20 meq Documented by: - Exam General: Alert, Oriented, Cooperative, Mild Distress HEENT: Pupils Equal, Pupils Reactive, EOMI Neck: Supple, Trachea Midline, No JVD, No Thyromegaly Lungs: Clear to Auscultation, Normal Respiratory Effort Cardiovascular: Regular Rate, Regular Rhythm GI/Abdominal Exam: Normal Bowel Sounds, Soft Back Exam: Normal Inspection Extremities: Normal Inspection Peripheral Pulses: 1+: Radial (L), Radial (R) Skin: Warm, Dry Neurological: No New Focal Deficit Psy/Mental Status: Alert, Normal Affect - Patient Data Lab Results Last 24 hrs: Laboratory Results - last 24 hr 04/08/21 04/08/21 Range/Units 05:53 05:53 WBC 8.6 (4.5-11.0) K/uL RBC 3.90 (3.30-5.50) M/uL Hgb 11.4 L (12.0-15.0) g/dL Hct 34.2 L (36.0-48.0) % MCV 88 (80-98) fL MCH 29 (27-31) pg MCHC 33 (32-36) % Plt Count 35 L (150-400) K/uL Add Manual Diff Yes Neutrophils % (Manual) 52 (36-66) % Band Neutrophils % 4 L (5-11) % Lymphocytes % (Manual) 27 (24-44) % Monocytes % (Manual) 14 H (2-6) % Basophils % (Manual) 2 H (0-1) % Blast Cells % 1 % Sodium 141 (140-148) mmol/L Potassium 3.4 L (3.6-5.2) mmol/L Chloride 103 (100-108) mmol/L Carbon Dioxide 32 (21-32) mmol/L Anion Gap 9.4 (5.0-14.0) mmol/L BUN 17 (7-18) mg/dL Creatinine 1.1 H (0.6-1.0) mg/dL Est Cr Clr Drug Dosing 33.05 mL/min Estimated GFR (MDRD) 48 L (>60) Glucose 106 (74-106) mg/dL Calcium 8.1 L (8.5-10.1) mg/dL Result Diagrams: 04/08/21 05:53 04/08/21 05:53 Andrew Results Last 24 hrs: Microbiology 04/05/21 07:50 Aerobic Blood Culture - Preliminary Blood - Venous NO GROWTH AFTER 3 DAYS Anaerobic Blood Culture - Preliminary NO GROWTH AFTER 3 DAYS 04/05/21 08:05 Aerobic Blood Culture - Preliminary Blood - Venous - Lab Draw NO GROWTH AFTER 3 DAYS Anaerobic Blood Culture - Preliminary NO GROWTH AFTER 3 DAYS Sepsis Event Note - Evaluation Sepsis Screening Result: Sepsis Risk - Focused Exam Vital Signs: Vital Signs Temp Pulse Pulse Resp BP BP Pulse Ox 04/08/21 16:00 94 33 H 128/75 94 L 04/08/21 15:00 98 F 85 19 128/75 94 L 04/08/21 14:00 95 25 H 141/81 H 94 L 04/08/21 13:00 89 31 H 137/75 90 L 04/08/21 12:00 88 28 H 146/94 H 94 L 04/08/21 11:00 115 H 27 H 129/69 93 L 04/08/21 10:00 116 H 28 H 125/68 92 L 04/08/21 09:53 136/68 04/08/21 09:52 123 H 136/68 04/08/21 09:00 98 F 123 H 23 H 136/68 94 L 04/08/21 08:00 98 F 109 H 31 H 134/70 92 L 04/08/21 07:00 98.4 F 88 25 H 143/72 H 94 L 04/08/21 06:00 33 H 148/73 H 94 L - Problem List Review Problem List Initiated/Reviewed/Updated: Yes - My Orders Last 24 Hours: My Active Orders 04/07/21 17:00 Magnesium Oxide 400 mg PO QPM 04/08/21 10:00 Metoprolol Tartrate [Lopressor] 50 mg PO BID lisinopriL [Prinivil] 40 mg PO DAILY 04/09/21 05:11 CXR [Chest 2V] [CR] Routine CBC WITH AUTO DIFF [HEME] Routine COMPREHENSIVE METABOLIC PN,CMP [CHEM] Routine - Plan Plan:: Assessment/Plan: #1. Sepsis: Blood cultures and urine cultures neg day 3. The lymph nodes are of concern. With the history of tick bites will continue with Doxycycline 100 mg bid. WBC normal. PLTs 31,000 of concern. I will repeat the chest x-ray first thing in the morning. 2. Hypotension: resolved presently #3. Hypokalemia: K is 3.4 Will continue with K+ supplement. #4 CRF: eGFR 48 Will continue to monitor. She continues to need oxygen. I hope this will improve in the next 12 hours and she is looking much better now than she did yesterday.
[2021-04-08] MEDS: Acetaminophen 500 MG Tab PO PRN (23:40)
--- NOTE | 2021-04-09 05:44 | CRLCR ---
For Patients: As a result of the Cures Act, medical imaging exams and procedure reports are released immediately into your electronic medical record. You may view this report before your referring provider. If you have questions, please contact your health care provider. INDICATION: Pneumonia TECHNIQUE: Chest radiograph 2 views COMPARISON: 04/07/2021 FINDINGS: Mediastinum: The mediastinum is normal in appearance. The heart silhouette is normal in size and morphology. Lung: Consolidation in the left lung base with moderate left pleural effusion noted without interval change. Minimal right basilar atelectasis is seen with small right effusion. No pneumothorax is identified. Bone and Soft tissue: Unremarkable for age. IMPRESSION: 1. Consolidation in the left lung base with moderate left pleural effusion noted without interval change. Dictated by David Wakefield MD @ 04/09/2021 5:41:45 AM Dictated by: David Wakefield MD @ 04/09/2021 05:42:00 (Electronically Signed)
[2021-04-09] MEDS: Albuterol/Ipratropium 3.0-0.5 MG/3 ML Neb Soln NEB SCH ×5 (07:51→23:00)
[2021-04-09] MEDS: Levothyroxine 88 MCG Tab PO SCH (08:23)
[2021-04-09] MEDS: Lisinopril 20 MG Tab PO SCH (08:24)
[2021-04-09] MEDS: Metoprolol Tartrate 50 MG Tab PO SCH ×2 (08:24→20:17)
[2021-04-09] MEDS: Potassium Chloride 20 MEQ Tab.ER PO SCH (08:25)
[2021-04-09] MEDS: Hydrochlorothiazide 25 MG Tab PO SCH (08:25)
[2021-04-09] MEDS: Cholecalciferol (Vitamin D3) 25 MCG Tab PO SCH (08:26)
[2021-04-09] MEDS: Doxycycline 100 MG Cap PO SCH ×2 (08:26→20:17)
--- NOTE | 2021-04-09 16:41 | PCM.PN ---
- General Info Date of Service: 04/09/21 Functional Status: Reports: Pain Controlled - Review of Systems General: Reports: Weakness HEENT: Reports: No Symptoms Pulmonary: Reports: Shortness of Breath, Cough Cardiovascular: Reports: No Symptoms Gastrointestinal: Reports: No Symptoms Genitourinary: Reports: No Symptoms Musculoskeletal: Reports: No Symptoms Skin: Reports: No Symptoms Neurological: Reports: No Symptoms Psychiatric: Reports: No Symptoms - Patient Data Vitals - Most Recent: Last Vital Signs Temp 97.5 F 04/09/21 14:55 Pulse 105 H 04/09/21 14:55 Resp 16 04/09/21 14:55 BP 134/68 04/09/21 14:55 Pulse Ox 92 L 04/09/21 14:55 Weight - Most Recent: 163 lb 5.8 oz I&O - Last 24 Hours: Intake & Output 04/09/21 04/09/21 04/09/21 06:59 14:59 22:59 Intake Total 880 650 Output Total 1100 500 Balance -220 150 Lab Results Last 24 Hours: Laboratory Results - last 24 hr 04/09/21 04/09/21 Range/Units 06:02 06:02 WBC 10.4 (4.5-11.0) K/uL RBC 4.11 (3.30-5.50) M/uL Hgb 12.2 (12.0-15.0) g/dL Hct 35.6 L (36.0-48.0) % MCV 87 (80-98) fL MCH 30 (27-31) pg MCHC 34 (32-36) % Plt Count 42 L (150-400) K/uL Add Manual Diff Yes Neutrophils % (Manual) 43 (36-66) % Lymphocytes % (Manual) 45 H (24-44) % Monocytes % (Manual) 5 (2-6) % Eosinophils % (Manual) 1 L (2-4) % Blast Cells % 6 % Sodium 139 L (140-148) mmol/L Potassium 4.1 (3.6-5.2) mmol/L Chloride 102 (100-108) mmol/L Carbon Dioxide 29 (21-32) mmol/L Anion Gap 12.1 (5.0-14.0) mmol/L BUN 23 H (7-18) mg/dL Creatinine 1.1 H (0.6-1.0) mg/dL Est Cr Clr Drug Dosing 33.05 mL/min Estimated GFR (MDRD) 48 L (>60) Glucose 93 (74-106) mg/dL Calcium 8.8 (8.5-10.1) mg/dL Total Bilirubin 1.0 (0.2-1.0) mg/dL AST 240 H (15-37) U/L ALT 167 H (12-78) U/L Alkaline Phosphatase 263 H D (46-116) U/L Total Protein 5.6 L (6.4-8.2) g/dL Albumin 2.6 L (3.4-5.0) g/dL Globulin 3.0 (2.3-3.5) g/dL Albumin/Globulin Ratio 0.9 L (1.2-2.2) Andrew Results Last 24 Hours: Microbiology 04/05/21 07:50 Aerobic Blood Culture - Preliminary Blood - Venous NO GROWTH AFTER 4 DAYS Anaerobic Blood Culture - Preliminary NO GROWTH AFTER 4 DAYS 04/05/21 08:05 Aerobic Blood Culture - Preliminary Blood - Venous - Lab Draw NO GROWTH AFTER 4 DAYS Anaerobic Blood Culture - Preliminary NO GROWTH AFTER 4 DAYS Med Orders - Current: Current Medications Acetaminophen (Acetaminophen 500 Mg Tab) 500 mg PO Q6H PRN PRN Reason: Fever Last Admin: 04/08/21 23:40 Dose: 500 mg Documented by: Albuterol/Ipratropium (Albuterol/Ipratropium 3.0-0.5 Mg/3 Ml Neb Soln) 3 ml NEB Q4H PRN PRN Reason: Shortness of Breath Last Admin: 04/08/21 08:06 Dose: 3 ml Documented by: Albuterol/Ipratropium (Albuterol/Ipratropium 3.0-0.5 Mg/3 Ml Neb Soln) 3 ml NEB Q4H [facility] Last Admin: 04/09/21 14:39 Dose: 3 ml Documented by: Benzonatate (Benzonatate 100 Mg Cap) 100 mg PO Q6H PRN PRN Reason: Cough Last Admin: 04/07/21 08:06 Dose: 100 mg Documented by: Cholecalciferol (Cholecalciferol (Vitamin D3) 25 Mcg Tab) 125 mcg PO DAILY [facility] Last Admin: 04/09/21 08:26 Dose: 125 mcg Documented by: Doxycycline Hyclate (Doxycycline 100 Mg Cap) 100 mg PO BID [facility] Last Admin: 04/09/21 08:26 Dose: 100 mg Documented by: Enoxaparin Sodium (Enoxaparin 30 Mg/0.3 Ml Syringe) 30 mg SUBCUT Q24H [facility] Last Admin: 04/05/21 14:10 Dose: 30 mg Documented by: Guaifenesin/Dextromethorphan (Guaifenesin/Dextromethorphan 100-10 Mg/5 Ml Soln 10 Ml Cup) 10 ml PO Q4H PRN PRN Reason: Cough Last Admin: 04/08/21 08:28 Dose: 10 ml Documented by: Hydrochlorothiazide (Hydrochlorothiazide 25 Mg Tab) 50 mg PO DAILY [facility] Last Admin: 04/09/21 08:25 Dose: 50 mg Documented by: Hydroxyzine HCl (Hydroxyzine Hcl 25 Mg Tab) 25 mg PO Q4H PRN PRN Reason: Other Last Admin: 04/07/21 21:53 Dose: 25 mg Documented by: Levothyroxine Sodium (Levothyroxine 88 Mcg Tab) 88 mcg PO ACBREAKFAST [facility] Last Admin: 04/09/21 08:23 Dose: 88 mcg Documented by: Lisinopril (Lisinopril 20 Mg Tab) 40 mg PO DAILY [facility] Last Admin: 04/09/21 08:24 Dose: 40 mg Documented by: Magnesium Oxide (Magnesium Oxide 400 Mg Tab) 400 mg PO QPM [facility] Last Admin: 04/08/21 17:01 Dose: 400 mg Documented by: Metoprolol Tartrate (Metoprolol Tartrate 50 Mg Tab) 50 mg PO BID [facility] Last Admin: 04/09/21 08:24 Dose: 50 mg Documented by: Potassium Chloride (Potassium Chloride 20 Meq Tab.Er) 40 meq PO DAILY [facility] Last Admin: 04/09/21 08:25 Dose: 40 meq Documented by: Discontinued Medications Acetaminophen (Acetaminophen 325 Mg Tab) 650 mg PO NOW ONE Stop: 04/05/21 07:30 Last Admin: 04/05/21 08:10 Dose: 650 mg Documented by: Albuterol/Ipratropium (Albuterol/Ipratropium 3.0-0.5 Mg/3 Ml Neb Soln) 3 ml NEB ONETIME ONE Stop: 04/05/21 07:20 Last Admin: 04/05/21 08:25 Dose: 3 ml Documented by: Albuterol/Ipratropium (Albuterol/Ipratropium 3.0-0.5 Mg/3 Ml Neb Soln) 3 ml NEB Q4H [facility] Last Admin: 04/09/21 10:59 Dose: 3 ml Documented by: Diphenhydramine HCl (Diphenhydramine 25 Mg Cap) 50 mg PO ONETIME ONE Stop: 04/07/21 14:31 Last Admin: 04/07/21 14:34 Dose: 50 mg Documented by: Furosemide (Furosemide 20 Mg/2 Ml Vial) 20 mg IVPUSH ONETIME ONE Stop: 04/07/21 19:14 Last Admin: 04/07/21 19:23 Dose: 20 mg Documented by: Furosemide (Furosemide 20 Mg/2 Ml Vial) 20 mg IVPUSH ONETIME ONE Stop: 04/07/21 19:54 Last Admin: 04/07/21 20:00 Dose: 20 mg Documented by: Lactated Ringer's (Ringers, Lactated) 1,000 mls @ 999 mls/hr IV ASDIRECTED [facility] Last Admin: 04/05/21 08:10 Dose: 999 mls/hr Documented by: Piperacillin Sod/Tazobactam (Sod 4.5 gm/ Sodium Chloride) 100 mls @ 200 mls/hr IV Q6H [facility] Last Admin: 04/05/21 08:10 Dose: 200 mls/hr Documented by: Lactated Ringer's (Ringers, Lactated) 1,000 mls @ 999 mls/hr IV BOLUS ONE Stop: 04/05/21 10:25 Last Admin: 04/05/21 09:30 Dose: 999 mls/hr Documented by: Norepinephrine Bitartrate 4 mg (/ Dextrose/Water) 250 mls @ 7.5 mls/hr IV TITRATE [facility]; Protocol Last Titration: 04/06/21 22:56 Dose: 0 mcg/min, 0 mls/hr Documented by: Sodium Chloride (Normal Saline) 100 mls @ 4 mls/sec IV ASDIRECTED [facility] Stop: 04/05/21 10:34 Last Admin: 04/05/21 11:24 Dose: 4 mls/sec Documented by: Sodium Chloride (Normal Saline) 1,000 mls @ 125 mls/hr IV ASDIRECTED [facility] Last Admin: 04/07/21 10:27 Dose: 125 mls/hr Documented by: Piperacillin/Tazobactam/ (Dextrose 3.375 gm/ Premix) 50 mls @ 100 mls/hr IV Q6H [facility] Last Admin: 04/07/21 13:17 Dose: 100 mls/hr Documented by: Potassium Chloride 20 meq/ (Premix) 0 mls @ 0 mls/hr IV Q2H [facility] Stop: 04/07/21 08:01 Last Admin: 04/07/21 05:41 Dose: 50 mls/hr Documented by: Potassium Chloride 20 meq/Lidocaine HCl 2 ml/ Sodium Chloride 112 mls @ 56 mls/hr IV ONETIME ONE Stop: 04/07/21 09:44 Last Admin: 04/07/21 07:26 Dose: 56 mls/hr Documented by: Albumin Human 25 gm/ Premix 100 mls @ 25 mls/hr IV Q4H [facility] Stop: 04/07/21 17:14 Last Admin: 04/07/21 13:15 Dose: 25 mls/hr Documented by: Iopamidol (Iopamidol 755 Mg/Ml 100 Ml Bottle) 100 ml IV . DIRECTED [facility] Stop: 04/05/21 10:34 Last Admin: 04/05/21 11:24 Dose: 100 ml Documented by: Lidocaine HCl (Lidocaine 1% 5 Ml Sdv) 2 ml INJECT ONETIME ONE Stop: 04/07/21 05:30 Last Admin: 04/07/21 05:42 Dose: 2 ml Documented by: Magnesium Oxide (Magnesium Oxide 400 Mg Tab) 400 mg PO DAILY [facility] Last Admin: 04/06/21 08:56 Dose: 400 mg Documented by: Metoprolol Tartrate (Metoprolol Tartrate 25 Mg Tab) 25 mg PO ONETIME ONE Stop: 04/07/21 21:14 Last Admin: 04/07/21 21:19 Dose: 25 mg Documented by: Potassium Chloride (Potassium Chloride 20 Meq Tab.Er) 20 meq PO BIDMEALS [facility] Last Admin: 04/06/21 16:53 Dose: 20 meq Documented by: Potassium Chloride (Potassium Chloride 20 Meq Tab.Er) 40 meq PO BIDMEALS [facility] Last Admin: 04/08/21 17:00 Dose: 40 meq Documented by: - Exam General: Alert, Oriented Neck: Supple Lungs: Crackles Cardiovascular: Regular Rate, Regular Rhythm GI/Abdominal Exam: Normal Bowel Sounds, Soft, Non-Tender, No Organomegaly, No Distention, No Abnormal Bruit, No Mass, Pelvis Stable Back Exam: Normal Inspection, Full Range of Motion Extremities: Normal Inspection, Normal Range of Motion, Non-Tender, No Pedal Edema, Normal Capillary Refill Peripheral Pulses: 1+: Radial (L), Radial (R) Neurological: No New Focal Deficit Psy/Mental Status: Alert, Normal Affect, Normal Mood - Patient Data Lab Results Last 24 hrs: Laboratory Results - last 24 hr 04/09/21 04/09/21 Range/Units 06:02 06:02 WBC 10.4 (4.5-11.0) K/uL RBC 4.11 (3.30-5.50) M/uL Hgb 12.2 (12.0-15.0) g/dL Hct 35.6 L (36.0-48.0) % MCV 87 (80-98) fL MCH 30 (27-31) pg MCHC 34 (32-36) % Plt Count 42 L (150-400) K/uL Add Manual Diff Yes Neutrophils % (Manual) 43 (36-66) % Lymphocytes % (Manual) 45 H (24-44) % Monocytes % (Manual) 5 (2-6) % Eosinophils % (Manual) 1 L (2-4) % Blast Cells % 6 % Sodium 139 L (140-148) mmol/L Potassium 4.1 (3.6-5.2) mmol/L Chloride 102 (100-108) mmol/L Carbon Dioxide 29 (21-32) mmol/L Anion Gap 12.1 (5.0-14.0) mmol/L BUN 23 H (7-18) mg/dL Creatinine 1.1 H (0.6-1.0) mg/dL Est Cr Clr Drug Dosing 33.05 mL/min Estimated GFR (MDRD) 48 L (>60) Glucose 93 (74-106) mg/dL Calcium 8.8 (8.5-10.1) mg/dL Total Bilirubin 1.0 (0.2-1.0) mg/dL AST 240 H (15-37) U/L ALT 167 H (12-78) U/L Alkaline Phosphatase 263 H D (46-116) U/L Total Protein 5.6 L (6.4-8.2) g/dL Albumin 2.6 L (3.4-5.0) g/dL Globulin 3.0 (2.3-3.5) g/dL Albumin/Globulin Ratio 0.9 L (1.2-2.2) Result Diagrams: 04/09/21 06:02 04/09/21 06:02 Andrew Results Last 24 hrs: Microbiology 04/05/21 07:50 Aerobic Blood Culture - Preliminary Blood - Venous NO GROWTH AFTER 4 DAYS Anaerobic Blood Culture - Preliminary NO GROWTH AFTER 4 DAYS 04/05/21 08:05 Aerobic Blood Culture - Preliminary Blood - Venous - Lab Draw NO GROWTH AFTER 4 DAYS Anaerobic Blood Culture - Preliminary NO GROWTH AFTER 4 DAYS Sepsis Event Note - Evaluation Sepsis Screening Result: Sepsis Risk - Focused Exam Vital Signs: Vital Signs Temp Pulse Pulse Resp BP BP Pulse Ox 04/09/21 14:55 97.5 F 105 H 16 134/68 92 L 04/09/21 14:40 92 04/09/21 14:32 97.1 F 97 16 136/69 91 L 04/09/21 11:48 76 125/64 04/09/21 10:59 92 04/09/21 10:00 123/53 L 04/09/21 08:24 83 148/78 H 04/09/21 08:00 85 24 H 148/78 H 91 L 04/09/21 07:53 84 04/09/21 06:00 75 25 H 138/79 94 L Pulse Ox 04/09/21 14:55 04/09/21 14:40 04/09/21 14:32 04/09/21 11:48 04/09/21 10:59 04/09/21 10:00 04/09/21 08:24 04/09/21 08:00 04/09/21 07:53 93 L 04/09/21 06:00 - Problem List Review Problem List Initiated/Reviewed/Updated: Yes - My Orders Last 24 Hours: My Active Orders 04/09/21 07:43 RT Acapella [RESPCARE] Routine 04/09/21 09:00 Potassium Chloride [Klor-Con M20] 40 meq PO DAILY 04/09/21 15:00 Albuterol/Ipratropium [DuoNeb 3.0-0.5 MG/3 ML] 3 ml NEB Q4H 04/10/21 05:11 CXR [Chest 2V] [CR] Routine CBC WITH AUTO DIFF [HEME] Routine COMPREHENSIVE METABOLIC PN,CMP [CHEM] Routine - Plan Plan:: Assessment/Plan: #1. Sepsis: Blood cultures and urine cultures neg day 4. The lymph nodes are of concern. With the history of tick bites will continue with Doxycycline 100 mg bid. WBC normal. PLTs 42,000 of concern. I will repeat the chest x-ray first thing in the morning. 2. Hypotension: resolved presently #3. Hypokalemia: K is 4.1 Will continue with K+ supplement. #4 CRF: eGFR 48 Will continue to monitor. She continues to need oxygen this is improving.
[2021-04-09] MEDS: Magnesium Oxide 400 MG Tab PO SCH (17:04)
[2021-04-10] MEDS: Albuterol/Ipratropium 3.0-0.5 MG/3 ML Neb Soln NEB SCH ×2 (03:33→07:07)
--- NOTE | 2021-04-10 04:10 | CRLCR ---
For Patients: As a result of the Cures Act, medical imaging exams and procedure reports are released immediately into your electronic medical record. You may view this report before your referring provider. If you have questions, please contact your health care provider. INDICATION: Pneumonia TECHNIQUE: Chest radiograph 2 views COMPARISON: 04/09/2021 FINDINGS: Mediastinum: The mediastinum is normal in appearance. The heart silhouette is normal in size and morphology. Lung: Left basilar consolidation, right basilar atelectasis and bilateral pleural effusions are present without interval change. No pneumothorax is identified. Bone and Soft tissue: Unremarkable for age. IMPRESSION: 1. There has been no significant interval changes. Dictated by David Wakefield MD @ 04/10/2021 4:10:04 AM Dictated by: David Wakefield MD @ 04/10/2021 04:10:06 (Electronically Signed)
[2021-04-10] MEDS: Levothyroxine 88 MCG Tab PO SCH (08:04)
[2021-04-10] MEDS: Cholecalciferol (Vitamin D3) 25 MCG Tab PO SCH (08:04)
[2021-04-10] MEDS: Potassium Chloride 20 MEQ Tab.ER PO SCH (08:04)
[2021-04-10] MEDS: Hydrochlorothiazide 25 MG Tab PO SCH (08:04)
[2021-04-10] MEDS: Doxycycline 100 MG Cap PO SCH (08:04)
[2021-04-10] MEDS: Metoprolol Tartrate 50 MG Tab PO SCH (08:05)
[2021-04-10] MEDS: Lisinopril 20 MG Tab PO SCH (08:05)
--- NOTE | 2021-04-10 08:21 | PCM.PN ---
- General Info Date of Service: 04/10/21 Functional Status: Reports: Pain Controlled - Review of Systems General: Reports: Weakness HEENT: Reports: No Symptoms Pulmonary: Reports: Shortness of Breath Cardiovascular: Reports: No Symptoms Gastrointestinal: Reports: No Symptoms Genitourinary: Reports: No Symptoms Musculoskeletal: Reports: No Symptoms Skin: Reports: No Symptoms Neurological: Reports: No Symptoms Psychiatric: Reports: No Symptoms - Patient Data Vitals - Most Recent: Last Vital Signs Temp 97.6 F 04/10/21 07:54 Pulse 118 H 04/10/21 08:05 Resp 18 04/10/21 07:54 BP 138/87 04/10/21 08:05 Pulse Ox 93 L 04/10/21 07:54 Weight - Most Recent: 163 lb 5.8 oz I&O - Last 24 Hours: Intake & Output 04/09/21 04/10/21 04/10/21 22:59 06:59 14:59 Intake Total 300 550 Balance 300 550 Lab Results Last 24 Hours: Laboratory Results - last 24 hr 04/10/21 04/10/21 Range/Units 04:00 04:00 WBC 10.6 (4.5-11.0) K/uL RBC 4.24 (3.30-5.50) M/uL Hgb 12.5 (12.0-15.0) g/dL Hct 36.8 (36.0-48.0) % MCV 87 (80-98) fL MCH 30 (27-31) pg MCHC 34 (32-36) % Plt Count 83 L (150-400) K/uL Neut % (Auto) 41.1 (36-66) % Lymph % (Auto) 49.5 H (24-44) % Foard % (Auto) 8.1 H (2-6) % Eos % (Auto) 0.6 L (2-4) % Baso % (Auto) 0.7 (0-1) % Sodium 140 (140-148) mmol/L Potassium 4.0 (3.6-5.2) mmol/L Chloride 103 (100-108) mmol/L Carbon Dioxide 28 (21-32) mmol/L Anion Gap 8.6 (5.0-14.0) mmol/L BUN 22 H (7-18) mg/dL Creatinine 1.0 (0.6-1.0) mg/dL Est Cr Clr Drug Dosing 36.35 mL/min Estimated GFR (MDRD) 54 L (>60) Glucose 110 H (74-106) mg/dL Calcium 9.1 (8.5-10.1) mg/dL Total Bilirubin 0.8 (0.2-1.0) mg/dL AST 195 H (15-37) U/L ALT 185 H (12-78) U/L Alkaline Phosphatase 257 H (46-116) U/L Total Protein 5.7 L (6.4-8.2) g/dL Albumin 2.7 L (3.4-5.0) g/dL Globulin 3.0 (2.3-3.5) g/dL Albumin/Globulin Ratio 0.9 L (1.2-2.2) Andrew Results Last 24 Hours: Microbiology 04/05/21 07:50 Aerobic Blood Culture - Final Blood - Venous NO GROWTH AFTER 5 DAYS Anaerobic Blood Culture - Final NO GROWTH AFTER 5 DAYS 04/05/21 08:05 Aerobic Blood Culture - Final Blood - Venous - Lab Draw NO GROWTH AFTER 5 DAYS Anaerobic Blood Culture - Final NO GROWTH AFTER 5 DAYS Med Orders - Current: Current Medications Acetaminophen (Acetaminophen 500 Mg Tab) 500 mg PO Q6H PRN PRN Reason: Fever Last Admin: 04/08/21 23:40 Dose: 500 mg Documented by: Albuterol/Ipratropium (Albuterol/Ipratropium 3.0-0.5 Mg/3 Ml Neb Soln) 3 ml NEB Q4H PRN PRN Reason: Shortness of Breath Last Admin: 04/08/21 08:06 Dose: 3 ml Documented by: Albuterol/Ipratropium (Albuterol/Ipratropium 3.0-0.5 Mg/3 Ml Neb Soln) 3 ml NEB Q4H [facility] Last Admin: 04/10/21 07:07 Dose: 3 ml Documented by: Benzonatate (Benzonatate 100 Mg Cap) 100 mg PO Q6H PRN PRN Reason: Cough Last Admin: 04/07/21 08:06 Dose: 100 mg Documented by: Cholecalciferol (Cholecalciferol (Vitamin D3) 25 Mcg Tab) 125 mcg PO DAILY [facility] Last Admin: 04/10/21 08:04 Dose: 125 mcg Documented by: Doxycycline Hyclate (Doxycycline 100 Mg Cap) 100 mg PO BID [facility] Last Admin: 04/10/21 08:04 Dose: 100 mg Documented by: Enoxaparin Sodium (Enoxaparin 30 Mg/0.3 Ml Syringe) 30 mg SUBCUT Q24H [facility] Last Admin: 04/05/21 14:10 Dose: 30 mg Documented by: Guaifenesin/Dextromethorphan (Guaifenesin/Dextromethorphan 100-10 Mg/5 Ml Soln 10 Ml Cup) 10 ml PO Q4H PRN PRN Reason: Cough Last Admin: 04/08/21 08:28 Dose: 10 ml Documented by: Hydrochlorothiazide (Hydrochlorothiazide 25 Mg Tab) 50 mg PO DAILY [facility] Last Admin: 04/10/21 08:04 Dose: 50 mg Documented by: Hydroxyzine HCl (Hydroxyzine Hcl 25 Mg Tab) 25 mg PO Q4H PRN PRN Reason: Other Last Admin: 04/07/21 21:53 Dose: 25 mg Documented by: Levothyroxine Sodium (Levothyroxine 88 Mcg Tab) 88 mcg PO ACBREAKFAST [facility] Last Admin: 04/10/21 08:04 Dose: 88 mcg Documented by: Lisinopril (Lisinopril 20 Mg Tab) 40 mg PO DAILY [facility] Last Admin: 04/10/21 08:05 Dose: 40 mg Documented by: Magnesium Oxide (Magnesium Oxide 400 Mg Tab) 400 mg PO QPM [facility] Last Admin: 04/09/21 17:04 Dose: 400 mg Documented by: Metoprolol Tartrate (Metoprolol Tartrate 50 Mg Tab) 50 mg PO BID [facility] Last Admin: 04/10/21 08:05 Dose: 50 mg Documented by: Potassium Chloride (Potassium Chloride 20 Meq Tab.Er) 40 meq PO DAILY [facility] Last Admin: 04/10/21 08:04 Dose: 40 meq Documented by: Discontinued Medications Acetaminophen (Acetaminophen 325 Mg Tab) 650 mg PO NOW ONE Stop: 04/05/21 07:30 Last Admin: 04/05/21 08:10 Dose: 650 mg Documented by: Albuterol/Ipratropium (Albuterol/Ipratropium 3.0-0.5 Mg/3 Ml Neb Soln) 3 ml NEB ONETIME ONE Stop: 04/05/21 07:20 Last Admin: 04/05/21 08:25 Dose: 3 ml Documented by: Albuterol/Ipratropium (Albuterol/Ipratropium 3.0-0.5 Mg/3 Ml Neb Soln) 3 ml NEB Q4H [facility] Last Admin: 04/09/21 10:59 Dose: 3 ml Documented by: Diphenhydramine HCl (Diphenhydramine 25 Mg Cap) 50 mg PO ONETIME ONE Stop: 04/07/21 14:31 Last Admin: 04/07/21 14:34 Dose: 50 mg Documented by: Furosemide (Furosemide 20 Mg/2 Ml Vial) 20 mg IVPUSH ONETIME ONE Stop: 04/07/21 19:14 Last Admin: 04/07/21 19:23 Dose: 20 mg Documented by: Furosemide (Furosemide 20 Mg/2 Ml Vial) 20 mg IVPUSH ONETIME ONE Stop: 04/07/21 19:54 Last Admin: 04/07/21 20:00 Dose: 20 mg Documented by: Lactated Ringer's (Ringers, Lactated) 1,000 mls @ 999 mls/hr IV ASDIRECTED [facility] Last Admin: 04/05/21 08:10 Dose: 999 mls/hr Documented by: Piperacillin Sod/Tazobactam (Sod 4.5 gm/ Sodium Chloride) 100 mls @ 200 mls/hr IV Q6H [facility] Last Admin: 04/05/21 08:10 Dose: 200 mls/hr Documented by: Lactated Ringer's (Ringers, Lactated) 1,000 mls @ 999 mls/hr IV BOLUS ONE Stop: 04/05/21 10:25 Last Admin: 04/05/21 09:30 Dose: 999 mls/hr Documented by: Norepinephrine Bitartrate 4 mg (/ Dextrose/Water) 250 mls @ 7.5 mls/hr IV TITRATE [facility]; Protocol Last Titration: 04/06/21 22:56 Dose: 0 mcg/min, 0 mls/hr Documented by: Sodium Chloride (Normal Saline) 100 mls @ 4 mls/sec IV ASDIRECTED [facility] Stop: 04/05/21 10:34 Last Admin: 04/05/21 11:24 Dose: 4 mls/sec Documented by: Sodium Chloride (Normal Saline) 1,000 mls @ 125 mls/hr IV ASDIRECTED [facility] Last Admin: 04/07/21 10:27 Dose: 125 mls/hr Documented by: Piperacillin/Tazobactam/ (Dextrose 3.375 gm/ Premix) 50 mls @ 100 mls/hr IV Q6H [facility] Last Admin: 04/07/21 13:17 Dose: 100 mls/hr Documented by: Potassium Chloride 20 meq/ (Premix) 0 mls @ 0 mls/hr IV Q2H [facility] Stop: 04/07/21 08:01 Last Admin: 04/07/21 05:41 Dose: 50 mls/hr Documented by: Potassium Chloride 20 meq/Lidocaine HCl 2 ml/ Sodium Chloride 112 mls @ 56 mls/hr IV ONETIME ONE Stop: 04/07/21 09:44 Last Admin: 04/07/21 07:26 Dose: 56 mls/hr Documented by: Albumin Human 25 gm/ Premix 100 mls @ 25 mls/hr IV Q4H [facility] Stop: 04/07/21 17:14 Last Admin: 04/07/21 13:15 Dose: 25 mls/hr Documented by: Iopamidol (Iopamidol 755 Mg/Ml 100 Ml Bottle) 100 ml IV . DIRECTED [facility] Stop: 04/05/21 10:34 Last Admin: 04/05/21 11:24 Dose: 100 ml Documented by: Lidocaine HCl (Lidocaine 1% 5 Ml Sdv) 2 ml INJECT ONETIME ONE Stop: 04/07/21 05:30 Last Admin: 04/07/21 05:42 Dose: 2 ml Documented by: Magnesium Oxide (Magnesium Oxide 400 Mg Tab) 400 mg PO DAILY [facility] Last Admin: 04/06/21 08:56 Dose: 400 mg Documented by: Metoprolol Tartrate (Metoprolol Tartrate 25 Mg Tab) 25 mg PO ONETIME ONE Stop: 04/07/21 21:14 Last Admin: 04/07/21 21:19 Dose: 25 mg Documented by: Potassium Chloride (Potassium Chloride 20 Meq Tab.Er) 20 meq PO BIDMEALS [facility] Last Admin: 04/06/21 16:53 Dose: 20 meq Documented by: Potassium Chloride (Potassium Chloride 20 Meq Tab.Er) 40 meq PO BIDMEALS [facility] Last Admin: 04/08/21 17:00 Dose: 40 meq Documented by: - Exam General: Alert, Oriented HEENT: Pupils Equal, Pupils Reactive, EOMI, Mucous Membr. Moist/[place] Neck: Supple Lungs: Clear to Auscultation, Normal Respiratory Effort Cardiovascular: Regular Rate, Regular Rhythm GI/Abdominal Exam: Normal Bowel Sounds, Soft, Non-Tender, No Organomegaly, No Distention, No Abnormal Bruit, No Mass, Pelvis Stable Back Exam: Normal Inspection, Full Range of Motion Extremities: Normal Inspection, Normal Range of Motion, Non-Tender, No Pedal Edema, Normal Capillary Refill Peripheral Pulses: 1+: Radial (L), Radial (R) Skin: Warm, Dry, Intact Neurological: Normal Gait - Patient Data Lab Results Last 24 hrs: Laboratory Results - last 24 hr 04/10/21 04/10/21 Range/Units 04:00 04:00 WBC 10.6 (4.5-11.0) K/uL RBC 4.24 (3.30-5.50) M/uL Hgb 12.5 (12.0-15.0) g/dL Hct 36.8 (36.0-48.0) % MCV 87 (80-98) fL MCH 30 (27-31) pg MCHC 34 (32-36) % Plt Count 83 L (150-400) K/uL Neut % (Auto) 41.1 (36-66) % Lymph % (Auto) 49.5 H (24-44) % Foard % (Auto) 8.1 H (2-6) % Eos % (Auto) 0.6 L (2-4) % Baso % (Auto) 0.7 (0-1) % Sodium 140 (140-148) mmol/L Potassium 4.0 (3.6-5.2) mmol/L Chloride 103 (100-108) mmol/L Carbon Dioxide 28 (21-32) mmol/L Anion Gap 8.6 (5.0-14.0) mmol/L BUN 22 H (7-18) mg/dL Creatinine 1.0 (0.6-1.0) mg/dL Est Cr Clr Drug Dosing 36.35 mL/min Estimated GFR (MDRD) 54 L (>60) Glucose 110 H (74-106) mg/dL Calcium 9.1 (8.5-10.1) mg/dL Total Bilirubin 0.8 (0.2-1.0) mg/dL AST 195 H (15-37) U/L ALT 185 H (12-78) U/L Alkaline Phosphatase 257 H (46-116) U/L Total Protein 5.7 L (6.4-8.2) g/dL Albumin 2.7 L (3.4-5.0) g/dL Globulin 3.0 (2.3-3.5) g/dL Albumin/Globulin Ratio 0.9 L (1.2-2.2) Result Diagrams: 04/10/21 04:00 04/10/21 04:00 Andrew Results Last 24 hrs: Microbiology 04/05/21 07:50 Aerobic Blood Culture - Final Blood - Venous NO GROWTH AFTER 5 DAYS Anaerobic Blood Culture - Final NO GROWTH AFTER 5 DAYS 04/05/21 08:05 Aerobic Blood Culture - Final Blood - Venous - Lab Draw NO GROWTH AFTER 5 DAYS Anaerobic Blood Culture - Final NO GROWTH AFTER 5 DAYS Sepsis Event Note - Evaluation Sepsis Screening Result: No Definite Risk - Focused Exam Vital Signs: Vital Signs Temp Pulse Pulse Resp BP BP BP 04/10/21 08:05 118 H 138/87 04/10/21 07:54 97.6 F 118 H 18 138/84 04/10/21 03:32 96.9 F 89 16 133/70 04/09/21 22:28 96.6 F L 89 16 126/53 L 04/09/21 20:17 101 H 126/68 Pulse Ox 04/10/21 08:05 04/10/21 07:54 93 L 04/10/21 03:32 91 L 04/09/21 22:28 90 L 04/09/21 20:17 - Problem List Review Problem List Initiated/Reviewed/Updated: Yes - My Orders Last 24 Hours: My Active Orders 04/09/21 07:43 RT Acapella [RESPCARE] Routine 04/09/21 09:00 Potassium Chloride [Klor-Con M20] 40 meq PO DAILY 04/09/21 15:00 Albuterol/Ipratropium [DuoNeb 3.0-0.5 MG/3 ML] 3 ml NEB Q4H - Plan Plan:: Assessment/Plan: #1. Sepsis/pneumonia: Blood cultures and urine cultures neg. The lymph nodes are of concern. With the history of tick bites will continue with Doxycycline 100 mg bid for another 3 days after discharge today. WBC normal at 10.6. PLTs 83,000 improving. I will repeat the chest x-ray in one week. 2. Hypotension resolved to Hypertension as before 138/87 #3. Hypokalemia resolved 4.0. #4 CRF: resolved Oxygen 92% on room air.
--- NOTE | 2021-04-10 08:25 | PCM.DCSUM1 ---
Discharge Summary - Hospital Course Brief History: She was feeling weak for one week then 4 days started to cough and had shortness of breath. Started to have fever and chills 2 days before admission and having shortness of breath. She came to the ER and was admitted. - Discharge Data Discharge Date: 04/10/21 Discharge Disposition: Home, Self-Care 01 Condition: Good - Referral to Home Health Primary Care Physician: Sean Lugo Sr, MD - Patient Summary/Data Complications: Allergic reaction to Zosyn Hospital Course: While in the hospital she made slow improvement and was on Oxygen from 1 to 3.5 liters of O2. She responded to Doxycycine but still has pneumonic infiltrates. - Patient Instructions Diet: Heart Healthy Diet Activity: As Tolerated - Discharge Plan Home Medications: Home Meds Cholecalciferol (Vitamin D3) [Vitamin D3] 5,000 unit PO DAILY 03/23/18 [History] Lisinopril 40 mg PO DAILY 03/23/18 [History] Metoprolol Tartrate 50 mg PO BID 03/23/18 [History] atorvaSTATin [Lipitor] 10 mg PO BEDTIME 03/23/18 [History] hydroCHLOROthiazide [Hydrochlorothiazide] 50 mg PO DAILY 03/23/18 [History] Levothyroxine [Synthroid] 88 mcg PO ACBREAKFAST #90 tab 04/23/18 [Rx] Magnesium Oxide [Magnesium] 400 mg PO DAILY #90 tablet 04/23/18 [Rx] Dextromethorphan/guaiFENesin [Robitussin DM] 10 ml PO Q4H PRN cup 04/10/21 [Rx] Doxycycline [Vibramycin] 100 mg PO BID cap 04/10/21 [Rx] Metoprolol Tartrate [Lopressor] 50 mg PO BID tablet 04/10/21 [Rx] Potassium Chloride [Klor-Con M20] 40 meq PO DAILY tab.er 04/10/21 [Rx] lisinopriL [Prinivil] 40 mg PO DAILY tablet 04/10/21 [Rx] Forms: ED Department Discharge Referrals: Sean Lugo Sr, MD [Primary Care Provider] - - Discharge Summary/Plan Comment DC Time >30 min.: Yes Discharge Summary/Plan Comment: Assessment/Plan: #1. Sepsis/pneumonia: Blood cultures and urine cultures neg. The lymph nodes are of concern. With the history of tick bites will continue with Doxycycline 100 mg bid for another 3 days after discharge today. WBC normal at 10.6. PLTs 83,000 improving. I will repeat the chest x-ray in one week. 2. Hypotension resolved to Hypertension as before 138/87 #3. Hypokalemia resolved 4.0. #4 CRF: resolved Oxygen 92% on room air. - Patient Data Vitals - Most Recent: Last Vital Signs Temp 97.6 F 04/10/21 07:54 Pulse 118 H 04/10/21 08:05 Resp 18 04/10/21 07:54 BP 138/87 04/10/21 08:05 Pulse Ox 93 L 04/10/21 07:54 Weight - Most Recent: 163 lb 5.8 oz I&O - Last 24 hours: Intake & Output 04/09/21 04/10/21 04/10/21 22:59 06:59 14:59 Intake Total 300 550 Balance 300 550 Lab Results - Last 24 hrs: Laboratory Results - last 24 hr 04/10/21 04/10/21 Range/Units 04:00 04:00 WBC 10.6 (4.5-11.0) K/uL RBC 4.24 (3.30-5.50) M/uL Hgb 12.5 (12.0-15.0) g/dL Hct 36.8 (36.0-48.0) % MCV 87 (80-98) fL MCH 30 (27-31) pg MCHC 34 (32-36) % Plt Count 83 L (150-400) K/uL Neut % (Auto) 41.1 (36-66) % Lymph % (Auto) 49.5 H (24-44) % [place] % (Auto) 8.1 H (2-6) % Eos % (Auto) 0.6 L (2-4) % Baso % (Auto) 0.7 (0-1) % Sodium 140 (140-148) mmol/L Potassium 4.0 (3.6-5.2) mmol/L Chloride 103 (100-108) mmol/L Carbon Dioxide 28 (21-32) mmol/L Anion Gap 8.6 (5.0-14.0) mmol/L BUN 22 H (7-18) mg/dL Creatinine 1.0 (0.6-1.0) mg/dL Est Cr Clr Drug Dosing 36.35 mL/min Estimated GFR (MDRD) 54 L (>60) Glucose 110 H (74-106) mg/dL Calcium 9.1 (8.5-10.1) mg/dL Total Bilirubin 0.8 (0.2-1.0) mg/dL AST 195 H (15-37) U/L ALT 185 H (12-78) U/L Alkaline Phosphatase 257 H (46-116) U/L Total Protein 5.7 L (6.4-8.2) g/dL Albumin 2.7 L (3.4-5.0) g/dL Globulin 3.0 (2.3-3.5) g/dL Albumin/Globulin Ratio 0.9 L (1.2-2.2) ESTELA Results - Last 24 hrs: Microbiology 04/05/21 07:50 Aerobic Blood Culture - Final Blood - Venous NO GROWTH AFTER 5 DAYS Anaerobic Blood Culture - Final NO GROWTH AFTER 5 DAYS 04/05/21 08:05 Aerobic Blood Culture - Final Blood - Venous - Lab Draw NO GROWTH AFTER 5 DAYS Anaerobic Blood Culture - Final NO GROWTH AFTER 5 DAYS Med Orders - Current: Current Medications Acetaminophen (Acetaminophen 500 Mg Tab) 500 mg PO Q6H PRN PRN Reason: Fever Last Admin: 04/08/21 23:40 Dose: 500 mg Documented by: Albuterol/Ipratropium (Albuterol/Ipratropium 3.0-0.5 Mg/3 Ml Neb Soln) 3 ml NEB Q4H PRN PRN Reason: Shortness of Breath Last Admin: 04/08/21 08:06 Dose: 3 ml Documented by: Albuterol/Ipratropium (Albuterol/Ipratropium 3.0-0.5 Mg/3 Ml Neb Soln) 3 ml NEB Q4H [facility] Last Admin: 04/10/21 07:07 Dose: 3 ml Documented by: Benzonatate (Benzonatate 100 Mg Cap) 100 mg PO Q6H PRN PRN Reason: Cough Last Admin: 04/07/21 08:06 Dose: 100 mg Documented by: Cholecalciferol (Cholecalciferol (Vitamin D3) 25 Mcg Tab) 125 mcg PO DAILY [facility] Last Admin: 04/10/21 08:04 Dose: 125 mcg Documented by: Doxycycline Hyclate (Doxycycline 100 Mg Cap) 100 mg PO BID [facility] Last Admin: 04/10/21 08:04 Dose: 100 mg Documented by: Enoxaparin Sodium (Enoxaparin 30 Mg/0.3 Ml Syringe) 30 mg SUBCUT Q24H [facility] Last Admin: 04/05/21 14:10 Dose: 30 mg Documented by: Guaifenesin/Dextromethorphan (Guaifenesin/Dextromethorphan 100-10 Mg/5 Ml Soln 10 Ml Cup) 10 ml PO Q4H PRN PRN Reason: Cough Last Admin: 04/08/21 08:28 Dose: 10 ml Documented by: Hydrochlorothiazide (Hydrochlorothiazide 25 Mg Tab) 50 mg PO DAILY [facility] Last Admin: 04/10/21 08:04 Dose: 50 mg Documented by: Hydroxyzine HCl (Hydroxyzine Hcl 25 Mg Tab) 25 mg PO Q4H PRN PRN Reason: Other Last Admin: 04/07/21 21:53 Dose: 25 mg Documented by: Levothyroxine Sodium (Levothyroxine 88 Mcg Tab) 88 mcg PO ACBREAKFAST [facility] Last Admin: 04/10/21 08:04 Dose: 88 mcg Documented by: Lisinopril (Lisinopril 20 Mg Tab) 40 mg PO DAILY [facility] Last Admin: 04/10/21 08:05 Dose: 40 mg Documented by: Magnesium Oxide (Magnesium Oxide 400 Mg Tab) 400 mg PO QPM [facility] Last Admin: 04/09/21 17:04 Dose: 400 mg Documented by: Metoprolol Tartrate (Metoprolol Tartrate 50 Mg Tab) 50 mg PO BID [facility] Last Admin: 04/10/21 08:05 Dose: 50 mg Documented by: Potassium Chloride (Potassium Chloride 20 Meq Tab.Er) 40 meq PO DAILY [facility] Last Admin: 04/10/21 08:04 Dose: 40 meq Documented by: Discontinued Medications Acetaminophen (Acetaminophen 325 Mg Tab) 650 mg PO NOW ONE Stop: 04/05/21 07:30 Last Admin: 04/05/21 08:10 Dose: 650 mg Documented by: Albuterol/Ipratropium (Albuterol/Ipratropium 3.0-0.5 Mg/3 Ml Neb Soln) 3 ml NEB ONETIME ONE Stop: 04/05/21 07:20 Last Admin: 04/05/21 08:25 Dose: 3 ml Documented by: Albuterol/Ipratropium (Albuterol/Ipratropium 3.0-0.5 Mg/3 Ml Neb Soln) 3 ml NEB Q4H [facility] Last Admin: 04/09/21 10:59 Dose: 3 ml Documented by: Diphenhydramine HCl (Diphenhydramine 25 Mg Cap) 50 mg PO ONETIME ONE Stop: 04/07/21 14:31 Last Admin: 04/07/21 14:34 Dose: 50 mg Documented by: Furosemide (Furosemide 20 Mg/2 Ml Vial) 20 mg IVPUSH ONETIME ONE Stop: 04/07/21 19:14 Last Admin: 04/07/21 19:23 Dose: 20 mg Documented by: Furosemide (Furosemide 20 Mg/2 Ml Vial) 20 mg IVPUSH ONETIME ONE Stop: 04/07/21 19:54 Last Admin: 04/07/21 20:00 Dose: 20 mg Documented by: Lactated Ringer's (Ringers, Lactated) 1,000 mls @ 999 mls/hr IV ASDIRECTED [facility] Last Admin: 04/05/21 08:10 Dose: 999 mls/hr Documented by: Piperacillin Sod/Tazobactam (Sod 4.5 gm/ Sodium Chloride) 100 mls @ 200 mls/hr IV Q6H [facility] Last Admin: 04/05/21 08:10 Dose: 200 mls/hr Documented by: Lactated Ringer's (Ringers, Lactated) 1,000 mls @ 999 mls/hr IV BOLUS ONE Stop: 04/05/21 10:25 Last Admin: 04/05/21 09:30 Dose: 999 mls/hr Documented by: Norepinephrine Bitartrate 4 mg (/ Dextrose/Water) 250 mls @ 7.5 mls/hr IV TITRATE [facility]; Protocol Last Titration: 04/06/21 22:56 Dose: 0 mcg/min, 0 mls/hr Documented by: Sodium Chloride (Normal Saline) 100 mls @ 4 mls/sec IV ASDIRECTED STA Stop: 04/05/21 10:34 Last Admin: 04/05/21 11:24 Dose: 4 mls/sec Documented by: Sodium Chloride (Normal Saline) 1,000 mls @ 125 mls/hr IV ASDIRECTED [facility] Last Admin: 04/07/21 10:27 Dose: 125 mls/hr Documented by: Piperacillin/Tazobactam/ (Dextrose 3.375 gm/ Premix) 50 mls @ 100 mls/hr IV Q6H [facility] Last Admin: 04/07/21 13:17 Dose: 100 mls/hr Documented by: Potassium Chloride 20 meq/ (Premix) 0 mls @ 0 mls/hr IV Q2H [facility] Stop: 04/07/21 08:01 Last Admin: 04/07/21 05:41 Dose: 50 mls/hr Documented by: Potassium Chloride 20 meq/Lidocaine HCl 2 ml/ Sodium Chloride 112 mls @ 56 mls/hr IV ONETIME ONE Stop: 04/07/21 09:44 Last Admin: 04/07/21 07:26 Dose: 56 mls/hr Documented by: Albumin Human 25 gm/ Premix 100 mls @ 25 mls/hr IV Q4H [facility] Stop: 04/07/21 17:14 Last Admin: 04/07/21 13:15 Dose: 25 mls/hr Documented by: Iopamidol (Iopamidol 755 Mg/Ml 100 Ml Bottle) 100 ml IV . DIRECTED STA Stop: 04/05/21 10:34 Last Admin: 04/05/21 11:24 Dose: 100 ml Documented by: Lidocaine HCl (Lidocaine 1% 5 Ml Sdv) 2 ml INJECT ONETIME ONE Stop: 04/07/21 05:30 Last Admin: 04/07/21 05:42 Dose: 2 ml Documented by: Magnesium Oxide (Magnesium Oxide 400 Mg Tab) 400 mg PO DAILY [facility] Last Admin: 04/06/21 08:56 Dose: 400 mg Documented by: Metoprolol Tartrate (Metoprolol Tartrate 25 Mg Tab) 25 mg PO ONETIME ONE Stop: 04/07/21 21:14 Last Admin: 04/07/21 21:19 Dose: 25 mg Documented by: Potassium Chloride (Potassium Chloride 20 Meq Tab.Er) 20 meq PO BIDMEALS [facility] Last Admin: 04/06/21 16:53 Dose: 20 meq Documented by: Potassium Chloride (Potassium Chloride 20 Meq Tab.Er) 40 meq PO BIDMEALS [facility] Last Admin: 04/08/21 17:00 Dose: 40 meq Documented by:
[2021-04-10 14:11] LABS: HGE IGG TITER Negative (Neg:<1:64); HGE IGM TITER Negative (Neg:<1:20)
[2021-04-13 14:10] LABS: E. CHAFFEENSIS (HME) IGG TITER Negative (Neg:<1:64); E. CHAFFEENSIS (HME) IGM TITER Negative (Neg:<1:20); HGE IGG TITER Negative (Neg:<1:64); HGE IGM TITER Negative (Neg:<1:20)
== END 2021-04-10 10:05 | disposition home or self-care (01) | DRG 871 ==
LOC: JP.ED 06:28 → JP.ICU 12:45 → JP.MS 04-09 14:23
PROVIDERS: ADMIT Internal Medicine; ATTEND Internal Medicine
DX: A41.9 Sepsis, unspecified organism (principal); J18.9 Pneumonia, unspecified organism; E87.6 Hypokalemia; I12.9 Hypertensive chronic kidney disease with stage 1 through stage 4 chronic kidney disease, or unspecified chronic kidney disease; N18.9 Chronic kidney disease, unspecified; Z41.9 Encounter for procedure for purposes other than remedying health state, unspecified; H54.7 Unspecified visual loss; E78.00 Pure hypercholesterolemia, unspecified; I25.10 Atherosclerotic heart disease of native coronary artery without angina pectoris; R21 Rash and other nonspecific skin eruption; I10 Essential (primary) hypertension; I25.2 Old myocardial infarction; E21.3 Hyperparathyroidism, unspecified; Z86.73 Personal history of transient ischemic attack (TIA), and cerebral infarction without residual deficits; Z79.890 Hormone replacement therapy; Z79.899 Other long term (current) drug therapy; Z20.822 Contact with and (suspected) exposure to COVID-19
CPT/HCPCS: 0241U; 36415; 71045; 71046; 71275; 80048; 80053; 81001; 83605; 84145; 84484; 85025; 85379; 86140; 86618; 86666; 86753; 87040; 93005; 94640; 94667; 96365; 96366; 96367; 99285; A9270-GY; J1650; J1940; J2001; J2543; J3480; J7030; J7060; J7120; J7620-GY; P9047; Q9967